=== PATIENT | male | born 1965 | race Caucasian/White ===

== ENCOUNTER 2018-10-10 14:16 | Emergency (ER) | payer MEDICAID, OTHER ==
--- OUTSIDE RECORDS SUMMARY | 2018-10-10 14:57 | XMS REPORT | Continuity of Care Document ---
:1965 External Reference #:[id number] Author Name Kristin Ward Care Team Providers Name Role Phone Arenl De Santiago MD Primary Care Physician Unavailable Payers Type Date Identification Numbers Payment Provider Subscriber Policy Number: [id number] [employer] Román Underwood PayID: [id number] [address] [address] [place] [address] Advance Directives Description No Information Available Problems Description No Information Family History Date Family Member(s) Problem(s) Comments General Hypertension General cancer Father due to bone cancer () Father Hypertension Father bone cancer Mother lung cancer Siblings 1 live and well Social History Type Date Description Comments Sex Unknown Marital Status Single Lives With Alone 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 ETOH Use Currently consumes a couple of drinks alcohol with dinner every night ETOH Use Has consumed alcohol in alcoholic the past Tobacco Use Start: Unknown Light tobacco smoker (10 or fewer cigarettes/day) Smoking Status Reviewed: 09/29/18 Light tobacco smoker (10 or fewer cigarettes/day) Exercise Exercises sporadically Type/Frequency Allergies, Adverse Reactions, Alerts Date Description Reaction Status Severity Comments 07/10/2018 Codeine Active 07/10/2018 Hydrocodone Active 07/12/2018 Metoprolol slurred speach very lathargic Active Medications Medication Date Status Form Strength Qnty SIG Indications Ordering Provider Indapamide Active Tablets 2.5mg take one Unknown 00 tablet by mouth daily(have nt taken ) Lisinopril Active Tablets 20mg 1 by mouth Unknown 00 every day Amlodipine Active Tablets 5mg 1 by mouth Unknown Besylate 00 every day Immunizations Description No Information Available Vital Signs Date Vital Result Comment 09/29/2018 8:35am Weight 181.00 lb without shoes Heart Rate 66 /min BP Systolic Sitting 158 mmHg Lue, reg cuff BP Diastolic Sitting 96 mmHg Lue, reg cuff BP Systolic Standing 148 mmHg Lue, reg cuff BP Diastolic Standing 98 mmHg Lue, reg cuff Respiratory Rate 12 /min Ejection Fraction 50-55% echo 07/20/18 07/12/2018 1:01pm Weight 179.00 lb Heart Rate 62 /min BP Systolic 182 mmHg rue reg cuff BP Diastolic 100 mmHg rue reg cuff BP Systolic Sitting 162 mmHg lue reg cuff BP Diastolic Sitting 102 mmHg lue reg cuff BP Systolic Standing 144 mmHg BP Diastolic Standing 108 mmHg Respiratory Rate 16 /min Results Description No Information Available Procedures Date Code Description Status 07/20/2018 22247 ECHO Transthoracic, Real-Time 2D With Doppler And Color Completed Flow 07/20/2018 63608 ECHO Transthoracic, Real-Time 2D With Doppler And Color Completed Flow 07/12/2018 21682 EKG Tracing & Interpretation Completed Encounters Type Date Location Provider Dx Diagnosis Office Visit 07/12/2018 [facility] Blake Avila I10 Essential ( primary) 1:00p Of Ailyn Guzman M.D. hypertension R00.2 Palpitations Plan of Treatment 09/29/2018 - Blake Guzman M.D.I10 Essential (primary) hypertensionFollow up :As neededRecommendations:Continue to work on the smoking and dietR00.2 Palpitations
--- OUTSIDE RECORDS SUMMARY | 2018-10-10 14:58 | XMS REPORT ---
:1965 External Reference #:[id number] Author Organization [facility] Address [address] [place] [address] Phone [phone] Care Team Providers Name Role Phone Arnel De Santaigo MD Care Team Information Rod Placer Unavailable Arnel De Santiago MD Primary Care Physician Unavailable Payers Type Date Identification Numbers Payment Provider Subscriber Medicaid Effective: Policy Number: [id number] [facility] Román Underwood 2018 PayID: [id number] [address] [address] [place] [address] Medicaid Effective: 2018 Policy Number: [id number] [place] Román Underwood Expires: 2018 PayID: [id number] [address] [facility] [place] [address] Problems Date Description Provider Status Onset: 09/26/2018 Impetigo Arnel De Santiago M.D. Active Onset: 09/26/2018 Mel acharyas Arnel De Santiago M.D. Active Onset: 08/08/2018 Tinea manus Arnel De Santiago M.D. Active Onset: 08/08/2018 Benign prostatic hypertrophy without Arnel De Santiago M.D. Active outflow obstruction Onset: 09/06/2014 Depressive disorder Arnel De Santiago M.D. Active Onset: 09/03/2014 Palpitations Arnel De Santiago M.D. Active Onset: 09/03/2014 Essential hypertension Arnel De Santiago M.D. Active Onset: 09/03/2014 H/O: alcoholism Arnel De aSntiago M.D. Active Family History Date Family Member(s) Problem(s) Comments Father due to Cancer () - bone Father due to Hypertension () Paternal Grandfather due to NC () Social History Type Date Description Comments Occupation [employer] Cigarette Use Current Cigarette Smoker 1 Pack not interested in chantix Daily ETOH Use Currently consumes alcohol rates as heavy in the past, none for a few days Smoking Patient is a current smoker, smokes every day Allergies, Adverse Reactions, Alerts Date Description Reaction Status Severity Comments 07/06/2002 Codeine active 07/06/2002 Hydrocodone active Medications Medication Date Status Form Strength Qnty SIG Indications Ordering Provider Bactrim DS 09/26 Active Tablets 800-160mg 20tab 1 by mouth Arnel F. /2017 s twice a day Gilbert De Santiago Nystatin 08/11 Active Cream [id number] 30gm use as directed Arnel F. t/GM twice a day as davide De Santiago M.D. Amlodipine 08/08 Active Tablets 5mg 90tab 1 by mouth Arnel F. Besylate s every day Gilbert De Santiago Indapamide 06/15 Active Tablets 2.5mg 90tab 1 by mouth I10 Arnel F. /2017 s every day Gilbert De Santiago Lisinopril 06/01 Active Tablets 20mg 90tab 1 by mouth I10 Arnel F. /2017 s every day Gilbert De Santiago Triamcinolone 08/11 Hx Cream 0.5% 60gm apply thin film Arnel F. Acetonide three times a Shallish, - day to affected M.D. 09/26 areas Nystatin/Triam 08/08 Hx Cream [id number]. 30gm apply 1 Arnel F. cinolone 1Unit/GM- application Zoeish, Acetonide - % topically to M.D. 08/11 affected area times per day for rossy infection Amlodipine 07/18 Hx Tablets 2.5mg 60tab 1 by mouth Arnel F. Besylate s every day Ethan De SantiagoDNyla 08/08 No Active 05/12 Hx Unknown Medications /2017 - 05/12 Lisinopril 05/12 Hx Tablets 10mg 30tab 1 by mouth I10 Patti /2017 s every day Lacy Ramirez 06/01 [employer] Chantix 05/12 Hx Tablets 0.5mg X 1tabs 1 starter pack F17.210 Patti Starting 11 & 1 mg for a month Lacy Urbano - X 42 Ramirez, 09/19 Keflex 04/15 Hx Capsules 500mg 20cap 1 by mouth L03.031 Patti s twice a day Lacy Ramirez, 05/12 Lisinopril 04/15 Hx Tablets 20mg 30tab 1 by mouth I10 Patti s every day Lacy Ramirez, 05/12 Amoxicillin/Cl 12/29 Hx Tablets 875-125mg 20tab 1 by mouth R05 Dara avulanate s twice a day Re, Potassium - with food [employer] 04/15 Lisinopril 12/29 Hx Tablets 10mg 30tab 1 by mouth I10 Patti s every day Lacy Ramirez, 04/15 No Active 04/14 Hx Unknown Medications /2014 - 12/29 Lisinopril 11/26 Hx Tablets 10mg 30tab 1 by mouth Arnel FNyla s every day Ethan De Santiago.DNyla 04/14 Escitalopram 09/06 Hx Tablets 20mg 30tab 10/20-10/18 by Arnel FNyla s mouth every day Ethan De Santiago M.DNyla 04/14 Thiamine HCL 09/03 Hx Tablets 100mg 100ta 1 by mouth Arnel FNyla bs every day Ethan De Santiago M.DNyla 04/14 No Active 05/04 Hx Unknown Medications /2012 - 05/04 Medrol Dosepak 05/04 Hx Tablets 4mg 1tabs as directed Arnel FNyla /2012 Ethan De Santiago M.DNyla 05/14 Penla Nail 06/18 Hx Solution 8% apply qhs to 709.9 Singh Lacquer affected nail, Tristian Lofton, - clean nail with M.D. 10/04 alcohol every days suff one month Chantix 02/01 Hx Misc 1unit 1 starter pack Arnel FNyla /2007 s as directed, Jonnathan, - then refill M.D. 10/04 maintenance /2007 packs Floxin 11/14 Hx Tablets 300mg 28tab 1 po bid Arnel F. /2007 Ethan Flood M.D. Pyridium 11/14 Hx Tablets 200mg 15tab 1 PO tid prn Arnel FNyla Ethan Flood M.D. Norvasc 08/15 Hx Tablets 2.5mg 30tab 1 PO qd Arnel FNyla Ethan Flood M.D. 11/14 Metoprolol 08/15 Hx Tablets 100mg 180ta 1 po bid Arnel FNyla Ethan Diamond M.D. 05/04 Penicillin VK 08/15 Hx Tablets 250mg 40tab 1 PO qid Arnel FNyla Ethan Flood M.D. 11/14 Norvasc 08/15 Hx Tablets 2.5mg 90tab 1 PO qd 401.9 Arnel . Ethan Flood M.D. 11/14 Augmentin 01/10 Hx Tablets 875mg 20tab 1 PO bid Arnel FNyla Ethan Flood M.D. 08/15 Chantix 01/10 Hx 1unit 1 Starter Pack Arnel Nyla s For Arnold Jonnathan, - Kathy Shipman M.D. 08/15 Refill Maintenance Packs Metoprolol 01/03 Hx Tablets 50mg 90tab 2 po bid Arnel F. Ethan Flood M.D. 08/15 Toprol XL 06/25 Hx Tablets 50mg 30tab 1 po qd Sarmad JNyla /2004 Ethan Koch M.D. 06/25 Metoprolol 06/25 Hx Tablets 25mg 60tab 1 po bid Sarmad JNyla /2004 Ethan Koch M.D. 01/03 Biaxin 08/31 Hx Tabs 500mg 28tab 1 PO bid Sarmad JNyla /2001 Ethan Koch M.D. 06/11 Duratuss 08/31 Hx 20uni 1 PO bid prn Sarmad Nice /2001 ts Head Ethan Davidson M.D. 06/11 Skelaxin 07/06 Hx 400mg 30uni 2 PO tid Sarmad Nice /2001 Ethan Ghosh M.D. 06/11 Physical 07/06 Hx [id number] Treatment And Sarmad JNyla Therapy [place] Evaluation For Ethan Davidson LT, M.D. 06/11 Cervicalradicul opathy Into Radial Distribution Oxycodone 07/06 Hx 0 0unit Sarmad J. /2001 s Ethan Davidson M.D. 06/11 Prinivil 04/06 Hx 10mg 30uni 1 PO qd Ethan Lunsford M.D. 06/25 Altace 03/08 Hx 5mg 30uni 1 PO qd Donis T. Ethan Miller M.D. 04/06 Cipro 02/13 Hx Tabs 250mg 14tab 1 PO bid Shaw A. Ethan Sanchez M.D. 08/30 Relafen 02/13 Hx 500mg 14uni 1 PO bid Shaw A. Ethan Betancur M.D. 04/06 Keflex 02/11 Hx 5Oomg 20uni 1 PO tid Taiwo JNyla Ethan Wallace M.D. 08/30 Altace 01/26 Hx 5mg 30uni 1 PO qd Shaw A. Ethan Betancur M.D. 02/25 Mentax 01/26 Hx Cream 45gm Apply bid To Shaw A. Ethan Quinn M.D. 02/25 Keflex 01/19 Hx 5Oomg 28uni 1 PO qid Shaw A. Ethan Betancur M.D. 01/26 Suprax 07/21 Hx 400mg 7unit 1 PO qd eDmian Martinez Ethan High M.D. 07/28 Entex LA 09/05 Hx 20uni 1 PO bid Donis T. Ethan Miller M.D. 01/19 Suprax 09/05 Hx 400mg 7unit 1 PO qd Donis T. Ethan Fernandez M.D. 01/19 Uroxatral Hx Tablets 10mg qd Unknown /0000 ER 24HR - 10/04 Metoprolol Hx Tablets 100mg 60tab take one tablet Arnel F. Tartrate /0000 s by mouth two Shallish, - times daily M.D. 04/14 Immunizations CPT Code Status Date Vaccine Lot # [id number] Given 07/18/2018 Influenza Vac, Quadrivalent, Slit Virus, Im [id number] Given 10/17/2004 Tetanus And Diptheria Adult Preservative Free >7Yrs Vital Signs Date Vital Result Comment 09/26/2018 BP Systolic 130 mmHg BP Diastolic 86 mmHg Heart Rate 60 /min Body Temperature 98.1 F Respiratory Rate 16 /min Height 71 inches 5'11" Weight 182.00 lb BMI (Body Mass Index) 25.4 kg/m2 08/08/2018 BP Systolic 148 mmHg BP Diastolic 88 mmHg Heart Rate 64 /min Body Temperature 97.5 F Respiratory Rate 16 /min Height 71 inches 5'11" Weight 176.38 lb BMI (Body Mass Index) 24.6 kg/m2 07/18/2018 BP Systolic 154 mmHg BP Diastolic 88 mmHg Heart Rate 68 /min Body Temperature 97.9 F Respiratory Rate 20 /min Weight 159.00 lb 06/15/2018 BP Systolic 170 mmHg BP Diastolic 100 mmHg Heart Rate 68 /min Body Temperature 98.4 F Respiratory Rate 16 /min Weight 174.00 lb 06/01/2018 BP Systolic 190 mmHg BP Diastolic 100 mmHg Heart Rate 88 /min Body Temperature 98.4 F Respiratory Rate 24 /min Weight 174.00 lb 05/26/2018 BP Systolic 190 mmHg BP Diastolic 110 mmHg BP Systolic Recheck 170 mmHg 10 min later BP Diastolic Recheck 110 mmHg 10 min later Heart Rate 68 /min 05/12/2018 BP Systolic 176 mmHg BP Diastolic 100 mmHg Heart Rate 76 /min Body Temperature 98.8 F Respiratory Rate 16 /min Height 71 inches 5'11" Weight 172.25 lb BMI (Body Mass Index) 24.0 kg/m2 04/15/2018 BP Systolic 158 mmHg BP Diastolic 108 mmHg Heart Rate 78 /min Body Temperature 98.6 F Respiratory Rate 16 /min Height 71 inches 5'11" Weight 175.00 lb BMI (Body Mass Index) 24.4 kg/m2 12/29/2017 BP Systolic 162 mmHg BP Diastolic 108 mmHg Heart Rate 72 /min Body Temperature 98.4 F Respiratory Rate 18 /min Height 71 inches 5'11" Weight 192.00 lb BMI (Body Mass Index) 26.8 kg/m2 04/14/2015 BP Systolic 140 mmHg BP Diastolic 100 mmHg Heart Rate 68 /min Body Temperature 98.1 F Respiratory Rate 16 /min Height 71 inches 5'11" Weight 178.00 lb BMI (Body Mass Index) 24.8 kg/m2 11/26/2014 BP Systolic 140 mmHg BP Diastolic 92 mmHg Heart Rate 60 /min Body Temperature 97.2 F Respiratory Rate 16 /min Height 71 inches 5'11" Weight 170.00 lb BMI (Body Mass Index) 23.7 kg/m2 09/06/2014 BP Systolic 150 mmHg BP Diastolic 100 mmHg Heart Rate 58 /min Body Temperature 98.0 F Height 71 inches 5'11" Weight 169.00 lb BMI (Body Mass Index) 23.6 kg/m2 09/03/2014 BP Systolic 200 mmHg BP Diastolic 100 mmHg Heart Rate 100 /min 05/04/2013 BP Systolic 140 mmHg BP Diastolic 90 mmHg Heart Rate 66 /min Body Temperature 98.0 F Respiratory Rate 16 /min Height 71 inches 5'11" Weight 163.00 lb BMI (Body Mass Index) 22.7 kg/m2 12/24/2008 BP Systolic 124 mmHg BP Diastolic 84 mmHg Heart Rate 60 /min Weight 170.00 lb 10/04/2008 BP Systolic 126 mmHg BP Diastolic 80 mmHg Heart Rate 88 /min Body Temperature 97.5 F Height 71.00 inches 5'11" Weight 168.00 lb BMI (Body Mass Index) 23.4 kg/m2 06/18/2008 BP Systolic 120 mmHg BP Diastolic 72 mmHg Heart Rate 80 /min Height 71.00 inches 5'11" Weight 162.00 lb BMI (Body Mass Index) 22.6 kg/m2 02/02/2008 BP Systolic 124 mmHg BP Diastolic 74 mmHg Heart Rate 64 /min Body Temperature 98.8 F Height 71.00 inches 5'11" Weight 169.00 lb BMI (Body Mass Index) 23.6 kg/m2 12/15/2007 BP Systolic 144 mmHg BP Diastolic 82 mmHg Heart Rate 72 /min Body Temperature 97.6 F Height 71.00 inches 5'11" Weight 171.00 lb BMI (Body Mass Index) 23.8 kg/m2 11/22/2007 BP Systolic 138 mmHg BP Diastolic 84 mmHg Heart Rate 80 /min Body Temperature 98.9 F Height 71.00 inches 5'11" Weight 183.00 lb BMI (Body Mass Index) 25.5 kg/m2 11/14/2007 BP Systolic 140 mmHg BP Diastolic 94 mmHg Heart Rate 72 /min Body Temperature 98.9 F Height 71.00 inches 5'11" Weight 180.00 lb BMI (Body Mass Index) 25.1 kg/m2 08/15/2007 BP Systolic 148 mmHg BP Diastolic 90 mmHg Heart Rate 64 /min Body Temperature 97.7 F Height 71.00 inches 5'11" Weight 203.00 lb BMI (Body Mass Index) 28.3 kg/m2 01/10/2007 BP Systolic 168 mmHg BP Diastolic 110 mmHg Heart Rate 76 /min Height 71.00 inches 5'11" Weight 197.00 lb BMI (Body Mass Index) 27.5 kg/m2 06/25/2005 BP Systolic 168 mmHg BP Diastolic 114 mmHg Heart Rate 88 /min Height 71.00 inches 5'11" Weight 192.00 lb BMI (Body Mass Index) 26.8 kg/m2 09/18/2004 BP Systolic 158 mmHg BP Diastolic 108 mmHg Heart Rate 96 /min Height 71.00 inches 5'11" Weight 200.00 lb BMI (Body Mass Index) 27.9 kg/m2 06/11/2003 BP Systolic 158 mmHg BP Diastolic 110 mmHg Heart Rate 96 /min Height 71.00 inches 5'11" Weight 198.00 lb BMI (Body Mass Index) 27.6 kg/m2 08/31/2002 BP Systolic 148 mmHg BP Diastolic 96 mmHg Heart Rate 76 /min Body Temperature 97.5 F Height 71.00 inches 5'11" Weight 200.00 lb BMI (Body Mass Index) 27.9 kg/m2 07/06/2002 BP Systolic 140 mmHg BP Diastolic 98 mmHg Heart Rate 64 /min Height 71.00 inches 5'11" Weight 198.00 lb BMI (Body Mass Index) 27.6 kg/m2 04/06/2002 BP Systolic 150 mmHg BP Diastolic 98 mmHg Heart Rate 80 /min Height 71.00 inches 5'11" Weight 200.00 lb BMI (Body Mass Index) 27.9 kg/m2 03/23/2001 BP Systolic 134 mmHg BP Diastolic 80 mmHg Heart Rate 72 /min Height 71.00 inches 5'11" Weight 190.00 lb BMI (Body Mass Index) 26.5 kg/m2 02/11/2001 BP Systolic 140 mmHg BP Diastolic 90 mmHg Heart Rate 80 /min Body Temperature 97.7 F Height 71.00 inches 5'11" 01/26/2001 BP Systolic 158 mmHg BP Diastolic 102 mmHg Heart Rate 96 /min Height 71.00 inches 5'11" Weight 192.00 lb BMI (Body Mass Index) 26.8 kg/m2 01/19/2001 BP Systolic 170 mmHg BP Diastolic 114 mmHg Body Temperature 97.5 F Height 71.00 inches 5'11" Weight 192.00 lb BMI (Body Mass Index) 26.8 kg/m2 07/21/2000 BP Systolic 146 mmHg BP Diastolic 90 mmHg Heart Rate 96 /min Body Temperature 97.6 F Height 71.00 inches 5'11" Weight 197.00 lb BMI (Body Mass Index) 27.5 kg/m2 09/05/1997 BP Systolic 150 mmHg BP Diastolic 92 mmHg Body Temperature 97.6 F Height 71.00 inches 5'11" Weight 175.00 lb Results Test Date Test Result H/L Range Note Lipid Profile 08/08/2018 Cholesterol 139 mg/dL 120-200 Triglycerides 54 mg/dL 30-200 HDL Cholesterol 68 mg/dL 30-70 LDL (Calculated) 60 CALC 0-129 VLDL Cholesterol 11 mg/dL 0-50 HDL Risk Factor 2.0 CALC 0.0-4.4 Laboratory test finding 08/08/2018 PSA 0.2 ng/mL 0.0-4.0 Basic Metabolic Panel (8) 06/01/2018 Glucose 81 mg/dL 65-99 1 BUN 15 mg/dL 6-24 1 Creatinine 0.83 mg/dL 0.76-1.27 1 eGFR If NonAfricn Am 100 mL/min/1.73 >59 1 eGFR If Africn Am 115 mL/min/1.73 >59 1 BUN/Creatinine Ratio 18 9-20 1 Sodium 141 mmol/L 134-144 1 Potassium 3.8 mmol/L 3.5-5.2 1 Chloride 106 mmol/L 96-106 1 Carbon Dioxide, Total 21 mmol/L 20-29 1 Calcium 9.0 mg/dL 8.7-10.2 1 Metabolic Panel (14), Comprehensive 05/12/2018 Glucose 90 mg/dL 65-99 2 BUN 13 mg/dL 6-24 2 Creatinine 0.80 mg/dL 0.76-1.27 2 eGFR If NonAfricn Am 101 mL/min/1.73 >59 2 eGFR If Africn Am 117 mL/min/1.73 >59 2 BUN/Creatinine Ratio 16 9-20 2 Sodium 140 mmol/L 134-144 2 Potassium 4.1 mmol/L 3.5-5.2 2 Chloride 100 mmol/L 96-106 2 Carbon Dioxide, Total 23 mmol/L 20-29 2 Calcium 8.9 mg/dL 8.7-10.2 2 Protein, Total 6.9 g/dL 6.0-8.5 2 Albumin 4.6 g/dL 3.5-5.5 2 Globulin, Total 2.3 g/dL 1.5-4.5 2 A/G Ratio 2.0 1.2-2.2 2 Bilirubin, Total 0.5 mg/dL 0.0-1.2 2 Alkaline Phosphatase 86 IU/L 39-117 2 Ast (Sgot) 21 IU/L 0-40 2 Alt (SGPT) 22 IU/L 0-44 2 CBC With Differential/Platelet 05/12/2018 WBC 7.6 x10E3/uL 3.4-10.8 2 RBC 4.56 x10E6/uL 4.14-5.80 2 Hemoglobin 15.2 g/dL 13.0-17.7 2 Hematocrit 44.6 % 37.5-51.0 2 MCV 98 fL High 79-97 2 MCH 33.3 pg High 26.6-33.0 2 MCHC 34.1 g/dL 31.5-35.7 2 RDW 13.7 % 12.3-15.4 2 Platelets 177 x10E3/uL 150-379 2 Neutrophils 72 % Not Estab. 2 Lymphs 17 % Not Estab. 2 Monocytes 10 % Not Estab. 2 Eos 1 % Not Estab. 2 Basos 0 % Not Estab. 2 Immature Cells TNP 2 Neutrophils (Absolute) 5.5 x10E3/uL 1.4-7.0 2 Lymphs (Absolute) 1.3 x10E3/uL 0.7-3.1 2 Monocytes(Absolute) 0.7 x10E3/uL 0.1-0.9 2 Eos (Absolute) 0.1 x10E3/uL 0.0-0.4 2 Baso (Absolute) 0.0 x10E3/uL 0.0-0.2 2 Immature Granulocytes 0 % Not Estab. 2 Immature Grans (Abs) 0.0 x10E3/uL 0.0-0.1 2 NRBC TNP 2 Hematology Comments: TNP 2 Laboratory test finding 05/12/2018 Thyroxine (T4) Free, 1.06 ng/dL 0.82- 1.77 2 Direct, S TSH 0.972 uIU/mL 0.450-4.500 2 CBC Auto Diff 12/12/2014 White Blood Count 6.6 10^3/uL 4.8-10.8 Red Blood Count 4.45 10^6/uL 4.0-5.4 Hemoglobin 15.1 g/dL 14.0-18.0 Hematocrit 44 % 42-52 Mean Corpuscular Volume 99 fL High 80-94 Mean Corpuscular Hemoglobin 34 pg High 27-31 Mean Corpuscular HGB Conc 34 g/dL 31-36 Red Cell Distribution Width 13 % 10.5-15 Platelet Count 198 10^3/uL 150-450 Mean Platelet Volume 8 um3 7.4-10.4 Abs Neutrophils 3.5 10^3/uL 1.5-7.7 Abs Lymphocytes 2.0 10^3/uL 1.0-4.8 Abs Monocytes 0.7 10^3/uL 0-0.8 Abs Eosinophils 0.3 10^3/uL 0-0.6 Abs Basophils 0.1 10^3/uL 0-0.2 Abs Nucleated RBC 0 10^3/uL Granulocyte % 53.4 % 38-83 Lymphocyte % 30.6 % 25-47 Monocyte % 10.6 % High 1-9 Eosinophil % 4.3 % 0-6 Basophil % 1.1 % 0-2 Nucleated Red Blood Cells % 0 Comp Metabolic Panel 12/12/2014 Sodium 136 mmol/L 133-145 Potassium 3.5 mmol/L 3.5-5.0 Chloride 102 mmol/L 101-111 Co2 Carbon Dioxide 25 mmol/L 22-32 Anion Gap 9 mmol/L 2-11 Glucose 97 mg/dL 70-100 Blood Urea Nitrogen 15 mg/dL 6-24 Creatinine 0.83 mg/dL 0.67-1.17 BUN/Creatinine Ratio 18.1 8-20 Calcium 9.1 mg/dL 8.6-10.3 Total Protein 7.0 g/dL 6.4-8.9 Albumin 4.4 g/dL 3.2-5.2 Globulin 2.6 g/dL 2-4 Albumin/Globulin Ratio 1.7 1-3 Total Bilirubin 0.30 mg/dL 0.2-1.0 Alkaline Phosphatase 72 U/L 34-104 Alt 21 U/L 7-52 Ast 25 U/L 13-39 Egfr Non- 97.7 >60 Egfr 125.6 >60 3 Laboratory test finding 12/12/2014 Magnesium 2.0 mg/dL 1.9-2.7 Troponin I 0.01 ng/mL <0.03 4 Alcohol 124 mg/dL High <10 TSH (Thyroid Stimulating Horm) 1.27 IU/mL 0.34-5.60 CBC Auto Diff 11/08/2014 White Blood Count 6.3 10^3/uL 4.8-10.8 Red Blood Count 4.72 10^6/uL 4.0-5.4 Hemoglobin 15.9 g/dL 14.0-18.0 Hematocrit 47 % 42-52 Mean Corpuscular Volume 100 fL High 80-94 Mean Corpuscular Hemoglobin 34 pg High 27-31 Mean Corpuscular HGB Conc 34 g/dL 31-36 Red Cell Distribution Width 13 % 10.5-15 Platelet Count 182 10^3/uL 150-450 Mean Platelet Volume 9 um3 7.4-10.4 Abs Neutrophils 4.8 10^3/uL 1.5-7.7 Abs Lymphocytes 0.8 10^3/uL Low 1.0-4.8 Abs Monocytes 0.6 10^3/uL 0-0.8 Abs Eosinophils 0.1 10^3/uL 0-0.6 Abs Basophils 0 10^3/uL 0-0.2 Abs Nucleated RBC 0 10^3/uL Granulocyte % 75.6 % 38-83 Lymphocyte % 13.1 % Low 25-47 Monocyte % 9.3 % High 1-9 Eosinophil % 1.5 % 0-6 Basophil % 0.5 % 0-2 Nucleated Red Blood Cells % 0 Comp Metabolic Panel 11/08/2014 Sodium 136 mmol/L 133-145 Potassium 4.3 mmol/L 3.5-5.0 Chloride 102 mmol/L 101-111 Co2 Carbon Dioxide 29 mmol/L 22-32 Anion Gap 5 mmol/L 2-11 Glucose 102 mg/dL High 70-100 Blood Urea Nitrogen 15 mg/dL 6-24 Creatinine 0.78 mg/dL 0.67-1.17 BUN/Creatinine Ratio 19.2 8-20 Calcium 9.5 mg/dL 8.6-10.3 Total Protein 7.9 g/dL 6.4-8.9 Albumin 5.0 g/dL 3.2-5.2 Globulin 2.9 g/dL 2-4 Albumin/Globulin Ratio 1.7 1-3 Total Bilirubin 0.60 mg/dL 0.2-1.0 Alkaline Phosphatase 76 U/L 34-104 Alt 22 U/L 7-52 Ast 21 U/L 13-39 Egfr Non- 104.9 >60 Egfr 135.0 >60 5 Laboratory test finding 11/08/2014 C Reactive Protein 1.41 mg/L < 5.00 6 CBC (Fma) 10/04/2008 WBC 8.9 3.6-9.6 RBC 4.58 3.90-5.70 Hemoglobin (Fma/CMC/CTX) 15.2 g/dL 12.1 - 17.2 Hematocrit (Fma/CMC/CTX) 44.5 % 36.1 - 50.3 Mean Corpuscular Vol 97.2 82.2-97.4 Mean Corpuscular Hemaglobin 33.2 27.6-33.3 Mean Corpuscular Hemo Concen 34.2 33.0-36.0 Platelets 167 10^3/ul 150-400 Lymph% 19.8 Low 20.5-51.1 Mixed% 11.1 Neutrophils % 69.1 RDW 12.5 11.6-13.7 Mean Platelet Volume 11.0 High 7.4-10.4 Comprehensive Metabolic Prof 10/04/2008 Albumin 4.2 g/dL 3.8-5.5 Alk. Phos. 65 U/L 22-95 Alt (SGPT) 15 U/L 10-40 Ast (Sgot) 24 U/L 5-34 BUN 18 mg/dL 6-26 Calcium 9.5 mg/dL 8.6-10.2 Chloride 103 mEq/L 94-112 Creatinine 0.9 mg/dL 0.6-1.4 Carbon Dioxide 29 mEq/L 21-32 Glucose 89 mg/dL 70-105 Sodium 140 mEq/L 134-149 Total Bilirubin 0.3 mg/dL 0.2-1.3 Total Protein 6.5 g/dL 6.3-8.1 Potassium 4.4 mEq/L 3.6-5.5 Globulin 2.3 g/dL 2.0-4.8 A/G Ratio 1.8 Calc 0.6-2.2 BUN/Creat Ratio 19.2 Calc 8.0-36.0 Laboratory test finding 10/04/2008 TSH 1.43 mIU/L 0.50-6.00 Laboratory test finding 10/04/2008 Hep B Surface Antigen NEGATIVE Negative 7 Hep C Abs 10/04/2008 Hep C Antibody NEGATIVE Negative 7 CBC With Electronic Diff 01/25/2008 White Blood Count 6.4 CUMM 4.8-10.8 8 Stat Abs Basophils 0 0-0.2 8 Abs Eosinophils 0.1 0-0.6 8 Absolute Neutrophil Count 4.9 1.5-7.7 8 Abs Lymphs 0.9 Low 1.0-4.8 8 Abs Mononuclear 0.5 0-0.8 8 Basophil % 0.3 % 0-2 8 Hematocrit 45 % 42-52 8, 9 Hemoglobin 15.9 g/dL 14.0-18.0 8 Eosinophil % 1.6 % 0-6 8 Gran % 75.4 % 38-83 8 Lymph % 14.7 % Low 20-45 8 Mean Corpuscular HGB Cone 35 g/dL 32-36 8 Mean Corpuscular Hemoglob 35 pg High 27-31 8 Mean Corpuscular Volume 99 um3 High 80-94 8 Mean Platelet Volume 9.3 um3 7.4-10.4 8 Mononuclear % 8.0 % 1-9 8 Platelet Count 148 CUMM Low 150-450 8 Red Cell Count 4.55 CUMM Low 4.6-6.2 8 Redcell Distribution WDTH 14 % 10.5-15 8 Laboratory test 01/25/2008 Alcohol 81.1 mg/dL High None Detected 8, 10 finding Comp Stat 01/25/2008 One Over Creatinine 1.25 8 Anion Gap 8.0 mmol/L 2-11 8, 11 Albumin/Globulin Ratio 1.4 1-3 8 Albumin 4.4 GM/DL 3.6-5.4 8 Alkaline Phosphatase 62 U/L 39-117 8 Alt (SGPT) 57 U/L 17-63 8 Ast (Sgot) 37 U/L 12-42 8 BUN 17 mg/dL 6-24 8 Calcium 8.9 mg/dL 8.7-10.2 8 Chloride 103 mmol/L 101-111 8 Co2 (Carbon Dioxide) 26.0 mmol/L 22-32 8 Globulin 3.1 GM/DL 2-4 8 Glucose 117 mg/dL High 70-105 8 Potassium 3.6 mmol/L 3.5-5.0 8 Sodium 137 mmol/L 135-145 8 Bilirubin Total 0.6 mg/dL 0.4-1.5 8 Total Protein 7.5 GM/DL 6.2-8.1 8 BUN/Creatinine Ratio 21.3 High 8-20 8 Creatinine 0.8 mg/dL 0.5-1.4 8 Laboratory test 01/25/2008 Troponin-I (TnI) 0.03 NG/ML 0-0.06 8, 12 finding Drug Screen Urine 01/25/2008 Amphetamines Urine NONE DETECTED None Detect 8 Screen Benzodiazepine Ur Screen NONE DETECTED None Detect 8 Cocaine Metabolites Urine NONE DETECTED None Detect 8 Opiates Urine Screen NONE DETECTED None Detect 8 PCP Urine Screen NONE DETECTED None Detect 8, 13 Cannabinoid Urine Screen NONE DETECTED None Detect 8 Barbituates Urine Screen NONE DETECTED None Detect 8 Urinalysis W/Microscopic Stat 01/25/2008 Ua Color YELLOW 8 Appearance-Urine CLEAR 8 Bilirubin-Ur NEGATIVE Negative 8 Blood-Urine NEGATIVE Negative 8 Epith Cells-Ur RARE 8 Esterase-Urine TRACE Negative 8 Glucose-Urine NEGATIVE Negative 8 Ketones-Urine NEGATIVE Negative 8 Nitrite NEGATIVE Negative 8 PH-Urine 5.0 5-9 8 Protein-Urine NEGATIVE Negative 8 RBC-Urine NONE SEEN 0-2 8 [id number]-[id number] NEGATIVE Negative 8 Specific [place]-Ur 1.019 1.010-1.030 8 WBC-Urine 0-2 0-5 8 Ua - Micro (Fma) 12/15/2007 Appearance clear Color yellow Glucose, Urine (Fma/CMC/CTX) - Bilirubin - Ketones 2+ SP Grav >1.030 Blood - PH 5.5 Protein - Urobil - Nitrite - Leukocytes (Fma/CMC/Centrex) - Hyaline no specimen /Lpf Granular saved for micro /Lpf Comprehensive Metabolic Prof 12/15/2007 Albumin 4.4 g/dL 3.8-5.5 Alk. Phos. 79 U/L 22-95 Alt (SGPT) 224 U/L High 10-40 Ast (Sgot) 162 U/L High 5-34 BUN 13 mg/dL 6-26 Calcium 9.2 mg/dL 8.6-10.2 Chloride 101 mEq/L 94-112 Creatinine 0.9 mg/dL 0.6-1.4 Carbon Dioxide 30 mEq/L 21-32 Glucose 77 mg/dL 70-105 Sodium 143 mEq/L 134-149 Total Bilirubin 0.5 mg/dL 0.2-1.3 Total Protein 7.1 g/dL 6.3-8.1 Potassium 3.6 mEq/L 3.6-5.5 Globulin 2.8 g/dL 2.0-4.8 A/G Ratio 1.6 Calc 0.6-2.2 BUN/Creat Ratio 14.5 Calc 8.0-36.0 Lipid Profile 12/15/2007 Cholesterol 143 mg/dL 120-200 HDL 87 mg/dL High 30-70 14 Triglycerides 74 mg/dL 30-200 HDL Risk Factor 1.6 CALC Low 4.2-7.0 LDL (Calculated) 41 CALC 0-129 VLDL (Calculated) 15 mg/dL 0-50 Complete Blood Count 12/15/2007 WBC 6.6 x10^3/u 3.6-9.6 Gran# 5.2 x10^3/u 1.5-7.2 Gran% 78.5 % High 42.2-75.2 HCT 51 % High 36-50 HGB 17.5 g/dL High 12.1-17.2 Lymph# 1.1 x10^3/u 0.7-4.9 Lymph% 16.3 % Low 20.5-51.1 MCH 35.6 pg High 27.6-33.3 MCV 102.5 fL High 82.2-97.4 MCHC 34.7 g/dL 33.0-35.5 Mo# 0.3 x10^3/u 0.1-0.9 Mo% 5.2 % 1.7-9.3 MPV 8.8 fL 7.4-10.4 PLT 134 x10^3/u Low 150-400 RBC 4.93 x10^6/u 3.90-5.70 RDW 13.3 % 11.6-13.7 Laboratory test finding 12/15/2007 PSA 0.20 ng/mL 0.00-4.00 CBC With Electronic Diff Stat 11/16/2007 White Blood Count 9.2 CUMM 4.8- 10.8 Abs Basophils 0.1 0-0.2 Abs Eosinophils 0.2 0-0.6 Absolute Neutrophil Count 5.7 1.5-7.7 Abs Lymphs 2.3 1.0-4.8 Abs Mononuclear 0.9 High 0-0.8 Basophil % 1.3 % 0-2 Hematocrit 51 % 42-52 Hemoglobin 18.1 g/dL High 14.0-18.0 Eosinophil % 2.3 % 0-6 Gran % 61.7 % 38-83 Lymph % 24.9 % 20-45 Mean Corpuscular HGB Cone 36 g/dL 32-36 Mean Corpuscular Hemoglob 34 pg High 27-31 Mean Corpuscular Volume 96 um3 High 80-94 Mean Platelet Volume 8.2 um3 7.4-10.4 Mononuclear % 9.8 % High 1-9 Platelet Count 189 CUMM 150-450 Red Cell Count 5.31 CUMM 4.6-6.2 Redcell Distribution WDTH 12 % 10.5-15 Alcohol Stat 11/16/2007 Alcohol 324.0 mg/dL High None Detected 15 Basic Metabolic 11/16/2007 One Over Creatinine 1.25 Panel Stat Anion Gap 13.0 mmol/L High 2-11 16 BUN 8 mg/dL 6-24 Calcium 8.9 mg/dL 8.7-10.2 Chloride 102 mmol/L 101-111 Co2 (Carbon Dioxide) 26.0 mmol/L 22-32 Glucose 96 mg/dL 70-105 Potassium 3.8 mmol/L 3.5-5.0 Sodium 141 mmol/L 135-145 BUN/Creatinine Ratio 10.0 8-20 Creatinine 0.8 mg/dL 0.5-1.4 Ua - Micro ([facility]) 11/14/2007 Appearance CLEAR Color LT YELLOW Glucose NEG Bilirubin NEG Ketones 1+ SP Grav 1.015 Blood NEG PH 7.0 Protein SSA NEG Urobil 1.0 Nitrite NEG Leukocytes (a[place]) TRACE Hyaline - /Lpf Granular - /Lpf WBC ([facility]) 10-15 RBC - Mucus - /Lpf Epith - /Lpf Bacteria PRESENT /Hpf Amorphous - /Lpf Crystals, Fluid (a/[facility]) - Z#Comments - Laboratory test finding 11/14/2007 Urine Culture ([facility] NEGATIVE GC/Chlamydia Probe, Urine 11/14/2007 Chlamydia Amplified Probe NEGATIVE GC Amplified Probe NEGATIVE CBC With Manual Diff ([facility] 12/25/2001 WBC 8.2 4.8-10.8 RBC 5.15 4.6-6.2 Hemoglobin 16.7 g/dL 14.0-18.0 Hematocrit 48 % 42-52 Mean Corpuscular Vol 93 80-94 Mean Corpuscular Hemaglobin 32 High 27-31 Mean Corpuscular Hemo Concen 35 32-36 RDW 12 10.5-15 Platelets 192 CUMM 150-450 Mean Platelet Volume 8.4 7.4-10.4 Poly From [facility] 72 38-83 Band - 0-8 Lymph From [facility] 21 5-47 [place] From [facility] 3 0-13 Eos From [facility] 2 0-6 Atypical Lymph 2 0-6 Morphology NORMAL Basophils - Basic Metabolic ([facility]) 12/25/2001 Sodium 141 mmol/L 135-145 Potassium 3.7 3.5-5.0 Chloride 103 mmol/L 95-108 Co2 25.8 21-33 Glucose 139 mg/dL High 70-105 BUN 20 6-22 Creatinine 1.0 mg/dL 0.5-1.4 BUN/Creatinin Ratio 20.0 8-20 Calcium 9.4 mg/dL 8.7-10.2 Lipid Profile ([facility]) 01/26/2001 Cholesterol 140 mg/dL 140-200 Triglyceride 55 mg/dL 30-150 VLDL 11 0-50 LDL-Calculated 76 0-160 HDL-Chol 53 35-85 Comp Plus Liver ([facility]) 01/26/2001 Albumin 4.6 3.8-5.5 Alkaline Phosphatase 86 U/L 42-98 Bilirubin, Direct 0.4 mg/dL 0-0.6 Bilirubin, Total 0.7 mg/dL 0.2-1.3 BUN 18 7-26 Calcium 8.0 mg/dL 7.4-9.2 Creatinine 0.8 mg/dL 0.6-1.4 Glucose 103 mg/dL 70 - 118 Ast Sgot 20 U/L 9-44 Alt SGPT 46 U/L High 0-28 Total Protein 7.0 g/dL 6.4-8.3 Sodium 143 134-149 Potassium 4.7 3.6-5.5 Chloride 105 mEq/L 94-112 Co2 26 21-32 Globulin 2.4 2.0-4.8 A/G Ratio 1.9 0.6-2.2 Bilirubin, Indirect 0.30 ml/dl 0.10-1.0 BUN/Creatinin Ratio 22.5 8.0-36 CBC With Diff ([facility]) 01/26/2001 WBC 8.2 3.6-9.6 Lymphocytes 15.9 % Low 20.5 - 51.1 Monocytes 2.4 % 1.7 - 9.3 Granulocytes 81.7 % High 42.2 - 75.2 Lymphocytes 1.3 10^3/uL 0.7 - 4.9 Monocytes 0.2 10^3/uL 0.1 - 0.9 Granulocytes 6.7 10^3/uL 1.5 - 7.2 RBC 5.03 3.90-5.70 Hemoglobin 16.7 g/dL 12.1 - 17.2 Hematocrit 48.3 % 36.1 - 50.3 Mean Corpuscular Vol 96.2 82.2-97.4 Mean Corpuscular Hemaglobin 33.1 27.6-33.3 Mean Corpuscular Hemo Concen 34.5 33.0-34.8 RDW 12.0 11.6-13.7 Platelets 188 10^3/ul 150-400 Mean Platelet Volume 9.8 7.4-10.4 Ua - Non Micro (a New) 01/26/2001 Appearance CLEAR YELLOW Glucose - Bilirubin - Ketones - SP Grav >=1.030 Blood - PH 5.0 Protein - Urobil 0.2 Nitrite - Leukocytes - 1 1 sst 2 2 SSTS 3 Because ethnic data is not always readily available, this report includes an eGFR for both -Americans and non- Americans. The National Kidney Disease Education Program (NKDEP) does not endorse the use of the MDRD equation for patients that are not between the ages of 18 and 70, are , have extremes of body size, muscle mass, or nutritional status, or are non- or non-. According to the National Kidney Foundation, irrespective of diagnosis, the stage of the disease is based on the level of kidney function: Stage Description GFR(mL/min/1.73 m(2)) 1 Kidney damage with normal or decreased GFR 90 2 Kidney damage with mild decrease in GFR 60-89 3 Moderate decrease in GFR 30-59 4 Severe decrease in GFR 15-29 5 Kidney failure <15 (or dialysis) 4 Reference Range and Interpretation: TnI (ng/mL) Interpretation Less Than 0.03 ng/mL Not supportive of diagnosis of NC 0.03 - 0.50 ng/mL Indeterminate: suggest serial studies if clinically indicated. Greater than 0.5 ng/mL Consistent with diagnosis of NC 5 Because ethnic data is not always readily available, this report includes an eGFR for both -Americans and non- Americans. The National Kidney Disease Education Program (NKDEP) does not endorse the use of the MDRD equation for patients that are not between the ages of 18 and 70, are , have extremes of body size, muscle mass, or nutritional status, or are non- or non-. According to the National Kidney Foundation, irrespective of diagnosis, the stage of the disease is based on the level of kidney function: Stage Description GFR(mL/min/1.73 m(2)) 1 Kidney damage with normal or decreased GFR 90 2 Kidney damage with mild decrease in GFR 60-89 3 Moderate decrease in GFR 30-59 4 Severe decrease in GFR 15-29 5 Kidney failure <15 (or dialysis) 6 Acute inflammation: >10.00 7 1 SST 8 COMMENTS? THANK-YOU 9 Lymphopenia % 10 The detection limit for ETHANOL is 10.0 mg/dl . Values less than 10.0 mg/dl cannot be accurately measured. . 11 Anion gap measurement may be of limited value in the presence of any alkalosis, especially in a combined acid base disorder. . 12 New Reference Range and Interpretation effective 07/20/02 TnI (ng/ml) INTERPRETATION <0.06 ng/ml NOT SUPPORTIVE OF DIAGNOSIS OF NC 0.06 - 0.50 ng/ml INDETERMINATE: SUGGEST SERIAL STUDIES IF CLINICALLY INDICATED. > 0.5 ng/ml CONSISTENT WITH DIAGNOSIS OF NC . 13 THE URINE SPECIMEN WAS TESTED AT THE LISTED CUTOFFS: DRUG CLASS TEST LEVEL (NG/ML) AMPHETAMINES 300 BARBITUATES 200 BENZODIAZEPINE METABOLITES 200 COCAINE METABOLITES 300 CANNABINOIDS 25 OPIATES 200 PCP 25 THIS IS A SCREENING PROCEDURE. POSITIVE RESULTS ARE NOT CONFIRMED. SPECIMEN WAS RECEIVED WITHOUT CHAIN OF CUSTODY. RESULTS SHOULD BE USED FOR MEDICAL PURPOSES ONLY. . 14 RESULT ALVINO'D 15 VERBAL TO [facility] BY GLORY at 0354 on 11/16/07. Results read back accurately. The detection limit for ETHANOL is 10.0 mg/dl . Values less than 10.0 mg/dl cannot be accurately measured. . 16 Anion gap measurement may be of limited value in the presence of any alkalosis, especially in a combined acid base disorder. . Procedures Date CPT Code Description Status 04/14/2015 68981 Electrocardiogram Complete Completed 09/03/2014 72275 Electrocardiogram Complete Completed Encounters Type Date Location Provider CPT E/M Dx Office Visit 08/08/2018 2:20p Main Office Arnel De Santiago M.D. 82717 I10 N40.0 B35.2 R00.2 Office Visit 07/18/2018 3:20p Main Office Arnel De Santiago M.D. 68159 Z23 I10 Office Visit 06/15/2018 5:45p [place] [address] I10 F17.210 F10.21 R00.2 Office Visit 06/01/2018 1:15p [place] [address] I10 F17.210 Z71.6 F10.21 Office Visit 05/26/2018 9:15a Main Office Arnel De Santiago M.D. 61902 I10 Office Visit 05/12/2018 1:00p [place] [address] I10 M79.674 F17.210 Z71.6 Office Visit 04/15/2018 10:30a Main Office Patti Ramirez, [employer] 89207 L03.031 I10 Office Visit 12/29/2017 3:15p [facility] Dara Grimaldo, BIOMETRIC TECHNICIAN 96400 I10 R05 Office Visit 04/14/2015 2:40p Main Office Arnel De Santiago M.D. 14193 401.9 785.1 V11.3 Office Visit 11/26/2014 1:40p Main Office Arnel De Santiago M.D. 59772 401.9 311 Office Visit 09/06/2014 4:20p [facility] Arnel De Santiago M.D. 56823 401.9 V11.3 785.1 311 Office Visit 09/03/2014 6:50p Main Office Arnel De Santiago M.D. 97559 V11.3 401.9 785.1 Office Visit 05/04/2013 10:20a [facility] Arnel De Santiago M.D. 69208 728.87 Office Visit 12/24/2008 2:00p Main Office Arnel De Santiago M.D. 73025 786.50 Office Visit 10/04/2008 1:20p Main Office Arnel De Santiago M.D. 57882 709.9 401.9 794.8 719.41 Office Visit 06/18/2008 1:40p Main Office Francisco Lofton M.D. 82382 709.9 Office Visit 02/02/2008 3:30p Main Office Arnel De Santiago M.D. 15054 401.9 311 601.9 V11.3 305.1 Office Visit 12/15/2007 11:00a Main Office Arnel De Santiago M.D. 57945 401.9 311 601.9 V11.3 Office Visit 11/22/2007 2:10p Main Office Taiwo Valencia M.D. 96435 601.9 Office Visit 11/14/2007 1:30p Main Office Arnel De Santiago M.D. 47168 788.1 401.9 311 V65.42 Office Visit 08/15/2007 5:50p Main Office Arnel De Santiago M.D. 94988 401.9 305.1 V76.41 Office Visit 01/10/2007 5:00p Main Office Arnel De Santiago M.D. 36991 401.9 466.0 305.1 461.1 Office Visit 06/25/2005 11:00a Main Office Sarmad Davidson M.D. 59714 401.9 Office Visit 09/18/2004 9:30a Main Office Kisha Herrera-C 51275 782.2 Office Visit 06/11/2003 4:10p Main Office Sarmad Davidson M.D. 79121 784.2 727.43 Office Visit 08/31/2002 3:00p Main Office Sarmad Davidson M.D. 66601 461.0 Office Visit 07/06/2002 9:10a [facility] Sarmad Davidson M.D. 12297 Office Visit 04/06/2002 10:20a Main Office Keegan Reilly M.D. 61374 Office Visit 03/23/2001 1:00p Main Office Shaw Hilario M.D. 84060 Office Visit 02/11/2001 11:30a Main Office Taiwo Valencia M.D. 88396 Office Visit 01/26/2001 3:20p Main Office Shaw Hilario M.D. 31448 Office Visit 01/19/2001 4:10p Main Office Shaw Hilario M.D. 62966 Office Visit 07/21/2000 11:40a Main Office Demian Melo M.D. 48073 Plan of Care Future Appointment(s):10/31/2018 3:00 pm - Arnel De Santiago M.D. at [facility]8009/26/2018 - Arnel De Santiago M.D.I10 Essential (primary) hypertensionComments:continue current medication, call if bp elevation is persistent above 140/90F10.21 Alcohol dependence, in remissionComments:says etoh not a problem nowB35.6 Tinea crurisComments:just nystatin on rash in lmvmoS08.09 Other impetigoComments:bactrim , to call if no improvement, consider Derm consultAllNew Medication:Bactrim DS 800-160 mgComments:check on appointment with Dr Guzman , had been referred for colonoscopyFollow up:2 months
[2018-10-10 15:00] LABS: ABS Basophils 0 10^3/ul (0-0.2); ABS Eosinophils 0.2 10^3/ul (0-0.6); ABS Lymphocytes 0.9 10^3/ul (1.0-4.8); ABS Monocytes 0.5 10^3/ul (0-0.8); ABS Neutrophils 4.3 10^3/ul (1.5-7.7); ABS Nucleated RBC 0 10^3/ul; Eosinophil % 3.5 %; Hematocrit 46 % (42-52); Hemoglobin 15.3 g/dl (14.0-18.0); Lymphocyte % 15.3 %; Mean Corpuscular HGB Conc 34 g/dl (31-36); Mean Corpuscular Hemoglobin 32 pg (27-31); Mean Corpuscular Volume 96 fL (80-94); Mean Platelet Volume 8.6 fL (7.4-10.4); Nucleated Red Blood Cells % 0.1; Platelet Count 206 10^3/ul (150-450); Red Blood Count 4.72 10^6/ul (4.00-5.40); Red Cell Distribution Width 13 % (10.5-15); White Blood Count 5.9 10^3/ul (3.5-10.8)
--- NOTE | 2018-10-10 15:06 | ED ---
Complex/Multi-Sys Presentation - HPI Summary HPI Summary: A 53 y/o male presents to the ED c/o nausea, SOB, and a wide array of symptoms after taking medication. In the ED room, the patient has a pulse of 71 BPM, O2 saturation of 100%, and blood pressure of 176/109. As per triage, "taking bactrim for 1.5wks for staph infection. yesterday started experiencing nausea, pulsating in head, "force in chest", difficulty breathing. history of MRSA". According to the patient, he has been taking Bactrim for a little while, however , yesterday around noon and somewhat the past two days, he has been experiencing nausea. He stated that he does take his antibiotics with his high blood pressure medications (rotations). When he took his first dose, he felt stomach problems, which is similar to symptoms he experienced before, but this time it is more of a "gas". Additionally, he has been frequently urinating. He has been urinating more fluid than he is consuming. Furthermore, today when he woke up he felt terrible and was dizzy (like he is drunk). He also has pressure in his face (not flushing), and "thrushing" in his chest. He emphasized that there was nothing aggravating in the best, nothing painful, and no palpitations , but his "heart pumping harder". He denies any abdominal pain, pain with urination, but does have a mild headache as he describes as throbbing and heaviness. He has no vision changes, or edema, weakness, dizziness, but does have SOB. He was given the medication because he was recently diagnosed with a staph infection on his left hand and groin, but it is getting better. No prior surgeries in abdomen. - History Of Current Complaint Chief Complaint: EDAllergicReaction Time Seen by Provider: 10/10/18 14:31 Hx Obtained From: Patient Onset/Duration: Sudden Onset, Lasting Days, Still Present Timing: Constant Severity Currently: None Location: Negative Character: Throbbing Aggravating Factor(s): NOTHING Alleviating Factor(s): NOTHING Associated Signs And Symptoms: Positive: Headache, SOB, Nausea. Negative: Dizziness, Weakness, Chest Pain, Palpitations, Edema, Abdominal Pain, Fever - Allergies/Home Medications Allergies/Adverse Reactions: Allergies Allergy/AdvReac Type Severity Reaction Status Date / Time codeine Allergy Hives Verified 10/10/18 14:23 hydrocodone Allergy Hives Verified 10/10/18 14:23 PMH/Surg Hx/FS Hx/Imm Hx Endocrine/Hematology History: Denies: Hx Diabetes, Hx Thyroid Disease Cardiovascular History: Reports: Hx Hypertension Respiratory History: Denies: Hx Asthma, Hx Chronic Obstructive Pulmonary Disease (COPD) GI History: Denies: Hx Ulcer - Surgical History Surgery Procedure, Year, and Place: TEMPORAL MASTOIDECTOMY - Immunization History Date of Tetanus Vaccine: PT STATES UNSURE Date of Influenza Vaccine: NONE Infectious Disease History: No Infectious Disease History: Denies: Hx Hepatitis, Hx Human Immunodeficiency Virus (HIV), Traveled Outside the [place] in Last 30 Days - Family History Known Family History: Negative: Diabetes - Social History Alcohol Use: Daily Alcohol Amount: daily drinker, on ABX hasnt had drink since 10/05/18 Substance Use Type: Reports: None Smoking Status (MU): Heavy Every Day Tobacco Smoker Amount Used/How Often: 5-7 PER DAY Review of Systems Positive: Other - NEGATIVE: FLUSHING. Negative: Fever Negative: Blurred Vision Positive: Other - POSITIVE: "HEART BEATING HARDER" Positive: Shortness Of Breath Positive: Nausea, Other - POSITIVE: "GAS" FEELING IN ABDOMEN. Negative: Abdominal Pain Positive: frequency - INCREASED. Negative: pain Negative: Edema Neurological: Other - NEGATIVE: DIZZINESS Positive: Headache. Negative: Weakness All Other Systems Reviewed And Are Negative: Yes Physical Exam - Summary Physical Exam Summary: Appearance: Well-appearing, Well-nourished, lying in bed comfortably Skin: Warm, dry, no obvious rash Eyes: sclera anicteric, no conjunctival pallor ENT: mucous membranes moist, pharynx appears normal Neck: Supple, nontender Respiratory: Clear to auscultation, no signs of respiratory distress Cardiovascular: Normal S1, S2. No murmurs. Normal distal pulses in tibial and radial bilaterally. Abdomen: Soft, nontender, normal active bowel sounds present Musculoskeletal: Normal, Strength/ROM Intact Neurological: A&Ox3, awake and alert, mentation is normal, speech is fluent and appropriate Psychiatric: affect is normal, does not appear anxious or depressed Triage Information Reviewed: Yes Vital Signs On Initial Exam: Initial Vitals Temp Pulse Resp BP Pulse Ox 97.8 F 86 16 173/106 100 10/10/18 14:18 10/10/18 14:18 10/10/18 14:18 10/10/18 14:18 10/10/18 14:18 Vital Signs Reviewed: Yes Diagnostics - Vital Signs Vital Signs Temp Pulse Resp BP Pulse Ox 10/10/18 14:32 72 100 10/10/18 14:31 73 176/109 100 10/10/18 14:18 97.8 F 86 16 173/106 100 - Laboratory Result Diagrams: 10/10/18 14:52 10/10/18 14:52 Lab Statement: Any lab studies that have been ordered have been reviewed, and results considered in the medical decision making process. - EKG 1458 Cardiac Rate: NL - 62 BPM EKG Rhythm: Sinus Rhythm - 62 BPM Summary of EKG Findings: NSR at 62 BPM, P waves, QRS complex, and T waves are within normal limits, T waves and intervals are normal, no ischemic changes. This is a normal EKG Complex Multi-Symp Course/Dx Course Of Treatment: A 53 y/o male presents to the ED c/o nausea, SOB, and a wide array of symptoms after taking medication. In the ED room, the patient has a pulse of 71 BPM, O2 saturation of 100%, and blood pressure of 176/109. According to the patient, he has been taking Bactrim for a little while, however , yesterday around noon and somewhat the past two days, he has been experiencing nausea. Additionally, he has been frequently urinating. He has been urinating more fluid than he is consuming. Furthermore, today when he woke up he felt terrible and was dizzy (like he is drunk). He also has pressure in his face (not flushing), and "thrushing" in his chest. He emphasized that there was nothing aggravating in the best, nothing painful, and no palpitations, but his "heart pumping harder". He denies any abdominal pain, pain with urination, but does have a mild headache as he describes as throbbing and heaviness. He has no vision changes, or edema, weakness, dizziness, but does have SOB. Physical examination was unremarkable. An EKG revealed NSR at 62 BPM, P waves, QRS complex, and T waves are within normal limits, T waves and intervals are normal, no ischemic changes. This is a normal EKG. Hematology, Chemistry, and urinalysis screens were done. No significant laboratory abnormalities were found. In the ED course, the patient received no medications. Patient will be discharged with a diagnosis of polyuria. Patient is to follow up with primary care provider in one week. Patient is to return to ED for any new or worsening symptoms. Patient is agreeable with this plan. - Diagnoses Provider Diagnoses: Polyuria Discharge - Sign-Out/Discharge Documenting (check all that apply): Patient Departure - DISCHARGE - Discharge Plan Condition: Good Disposition: HOME Patient Education Materials: Polyuria (ED) Referrals: James SY,YOSSI Armstrong [Primary Care Provider] - 1 Week Additional Instructions: Your blood work and EKG did not show any sign of a serious problem with the heart or with your metabolism. Your symptoms are not typical for an allergy to bactrim but I think it would be reasonable to hold that medication for the time being, until you can discuss this further with your own physician. Sometimes an illness takes time to develop before a diagnosis can be made, so be alert for any changes to your symptoms, or especially new symptoms. RETURN TO THE ED FOR ANY NEW OR WORSENING SYMPTOMS. - Billing Disposition and Condition Condition: GOOD Disposition: Home - Attestation Statements Document Initiated by Ramos: Yes Documenting Crissyibe: Jonathon Patel Provider For Whom Ramos is Documenting (Include Credential): Keegan Wilhelm MD [employer] Attestation: Jonathon Wilburn, scribed for Keegan Wilhelm MD on 10/13/18 at 0204. Scribe Documentation Reviewed: Yes Provider Attestation: The documentation as recorded by the Jonathon aaron accurately reflects the service I personally performed and the decisions made by Keegan beth MD Status of Scribe Document: Viewed
[2018-10-10 15:17] LABS: ALT 22 U/L (7-52); AST 17 U/L (13-39); Albumin 4.3 g/dL (3.2-5.2); Albumin/Globulin Ratio 1.7 (1-3); Alkaline Phosphatase 73 U/L (34-104); Anion Gap 4 mmol/L (2-11); BUN/Creatinine Ratio 14.4 (8-20); Blood Urea Nitrogen 13 mg/dL (6-24); CO2 Carbon Dioxide 24 mmol/L (22-32); Calcium 9.2 mg/dL (8.6-10.3); Chloride 107 mmol/L (101-111); EGFR Non-African American 87.6 (>60); Globulin 2.6 g/dL (2-4); Glucose 110 mg/dL (70-100); Potassium 3.9 mmol/L (3.5-5.0); Sodium 135 mmol/L (135-145); Total Protein 6.9 g/dL (6.4-8.9)
[2018-10-10 15:22] LABS: Alcohol < 10 mg/dL (<10)
[2018-10-10 15:37] LABS: TSH (Thyroid Stimulating Horm) 1.66 mcIU/mL (0.34-5.60)
[2018-10-10 16:30] LABS: Urine Appearance Clear; Urine Bilirubin Negative (Negative); Urine Blood Negative (Negative); Urine Color Yellow; Urine Glucose Negative (Negative); Urine Ketones Negative (Negative); Urine Nitrite Negative (Negative); Urine Protein Negative (Negative); Urine Specific Gravity 1.015 (1.010-1.030); Urine Urobilinogen Negative (Negative)
[2018-10-10 18:37] VITALS: BP 159/105
== END 2018-10-10 18:36 | disposition home or self-care (01) ==
LOC: ED 14:16
DX: R35.8 Other polyuria (principal); R51 Headache; R06.02 Shortness of breath; R11.0 Nausea; F17.210 Nicotine dependence, cigarettes, uncomplicated
CPT/HCPCS: 36415; 80053; 80320; 81003; 84443; 84484; 85025; 93005; 99282; G0480

== ENCOUNTER 2019-04-11 10:45 | Emergency (ER) | payer OTHER ==
--- OUTSIDE RECORDS SUMMARY | 2019-04-11 10:51 | XMS REPORT | Continuity of Care Document ---
:1965 External Reference #:[id number] Author Name Arnel De Santiago M.D. 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 Onset: 09/03/2014 Essential hypertension Arnel De Santiago M.D. Onset: 09/03/2014 Depressive disorder Arnel De Santiago M.D. Onset: 09/06/2014 Benign prostatic hypertrophy without outflow Arnel De Santiago M.D. Onset: obstruction Tinea manus Arnel De Santiago M.D. Onset: 08/08/2018 Inactive Problems Palpitations Arnel De Santiago M.D. Onset: 09/03/2014 Inactive: 04/06/2019 Tinea cruris Arnel De Santiago M.D. Onset: 09/26/2018 Inactive: 04/06/2019 Impetigo Arnel De Santiago M.D. Onset: 09/26/2018 Inactive: 04/06/2019 Erythematous condition Arnel De Santiago M.D. Onset: 10/31/2018 Inactive: 04/06/2019 Otitis externa Arnel De Santiago M.D. Onset: 01/02/2019 Inactive: 04/06/2019 Family History Date Family Member(s) Observation Comments Father due to Cancer () - bone Father due to Hypertension () Paternal Grandfather due to [place] () Social History Type Date Description Comments Sex Unknown Occupation [employer] Tobacco Use Start: Unknown Current Cigarette Smoker 1 not interested in chantix Pack Daily ETOH Use Currently consumes alcohol rates as heavy in the past, none for a few days Tobacco Use Start: Unknown Patient is a current smoker, smokes every day Smoking Status Reviewed: 05/12/18 Patient is a current smoker, smokes every day Allergies, Adverse Reactions, Alerts Active Allergies Reaction Severity Comments Date Codeine 07/06/2002 Hydrocodone 07/06/2002 Medications Active Medications SIG Qnty Indications Ordering Provider Date Nystatin use as directed 30gm Arnel De Santiago, 08/11/2018 [id number]/GM twice a day as M.D. Cream needed Amlodipine Besylate 1 by mouth every 90tabs Arnel De Santiago, 08/08/2018 5mg day M.D. Tablets Lisinopril 1 by mouth every 90tabs I10 Arnel De Santiago, 06/01/2018 20mg Tablets day M.D. History Medications Terbinafine HCL Take 1 tablet by mouth 14tabs Arnel FNyla 01/02/2019 - daily for fungal skin Gilbert De Santiago 04/06/2019 250mg Tablets disease Azithromycin take 2 tablets by mouth on 6tabs Arnel Hassan 10/31/2018 - day 1 then 1 tablet on Gilbert De Santiago 11/06/2018 250mg Tablets days 2 through 5 Terbinafine HCL Take 1 tablet by mouth 14tabs Arnel FNyla 10/12/2018 - daily for fungal skin Gilbert De Santiago 10/31/2018 250mg Tablets disease Amoxicillin/Clavul 1 twice a day w/ food. 20tabs Arnel FNyla 10/12/2018 - anate Potassium Gilbert De Santiago 10/30/2018 875-125mg Tablets Bactrim DS 1 by mouth twice a day 20tabs Arnel FNyla 09/26/2018 - Gilbert De Santiago 10/12/2018 800-160mg Tablets Triamcinolone apply thin film three 60gm Arnel Mo 08/11/2018 - Acetonide times a day to affected Gilbert De Santiago 09/26/2018 0.5% areas Cream Nystatin/Triamcino apply 1 application 30gm Arnel FNyla 08/08/2018 - lone Acetonide topically to affected area Gilbert De Santiago 08/11/2018 2 times per day for 192769-3.1Unit/GM- rossy infection % Cream Amlodipine 1 by mouth every day 60tabs Arnel Hassan 07/18/2018 - Besylate Gilbert De Santiago 08/08/2018 2.5mg Tablets Indapamide 1 by mouth every day 90tabs I10 Arnel Hassan 06/15/2018 - 2.5mg Gilbert De Santiago 10/31/2018 Tablets Chantix Starting 1 starter pack for a month 1tabs F17.2 [facility] 2017 - Month Urbano 10 YOSSI Ramirez 09/19/2018 0.5mg X 11 & 1 mg X 42 Tablets Lisinopril 1 by mouth every day 30tabs I10 [facility] 05/12/2018 - 10mg Ramirez, INTERNATIONAL NURSE 06/01/2018 Tablets No Active Unknown 05/12/2018 - Medications 05/12/2018 Keflex 1 by mouth twice a day 20caps L03.0 [facility] 04/15/2018 - 500mg 31 Ramirez, INTERNATIONAL NURSE 05/12/2018 Capsules Lisinopril 1 by mouth every day 30tabs I10 [facility] 04/15/2018 - 20mg Ramirez, INTERNATIONAL NURSE 05/12/2018 Tablets Amoxicillin/Clavul 1 by mouth twice a day 20tabs R05 Dara Grimaldo, 2017 - anate Potassium with food [employer] 04/15/2018 875-125mg Tablets Lisinopril 1 by mouth every day 30tabs I10 [facility] 12/29/2017 - 10mg Ramirez, INTERNATIONAL NURSE 04/15/2018 Tablets No Active Unknown 04/14/2015 - Medications 12/29/2017 Lisinopril 1 by mouth every day 30tabs Arnel Hassan 11/26/2014 - 10mg Gilbert De Santiago 04/14/2015 Tablets Escitalopram /-1/2 by mouth every day 30tabs Arnel Hassan 09/06/2014 - Oxalate Gilbert De Santiago 04/14/2015 20mg Tablets Thiamine HCL 1 by mouth every day 100tabs Arnel Hassan 09/03/2014 - Gilbert De Santiago 04/14/2015 100mg Tablets No Active Unknown 05/04/2013 - Medications 05/04/2013 Medrol Dosepak as directed 1tacristian Hassan 05/04/2013 - Gilbert De Santiago 05/14/2013 4mg Tablets [place] Nail apply qhs to affected 709.9 Singh A. 06/18/2008 - Lacquer nail, clean nail with Gilbert Lofton 10/04/2008 8% alcohol every 7 days Solution suff one month Chantix 1 starter pack as 1units Arnel KatelynNyla 02/02/2008 - [facility] directed, then refill Gilbert De Santiago 10/04/2008 maintenance packs Pyridium 1 PO tid prn 15tabs Arnel Hassan 11/14/2007 - 200mg Gilbert De Santiago 12/15/2007 Tablets Floxin 1 po bid 28tabs Arnel Hassan 11/14/2007 - 300mg Gilbert De Santiago 12/15/2007 Tablets Norvasc 1 PO qd 30tabs Arnel Mo 08/15/2007 - 2.5mg Gilbert De Santiago 11/14/2007 Tablets Metoprolol 1 po bid 180tabs Arnel Hassan 08/15/2007 - 100mg Gilbert De Santiago 05/04/2013 Tablets Penicillin VK 1 PO qid 40tabs Arnel Hassan 08/15/2007 - Gilbert De Santiago 11/14/2007 250mg Tablets Norvasc 1 PO qd 90tabs 401.9 Arnel Hassan 08/15/2007 - 2.5mg Gilbert De Santiago 11/14/2007 Tablets Augmentin 1 PO bid 20tabs Arnel FNyla 01/10/2007 - 875mg Gilbert De Santiago 08/15/2007 Tablets Chantix 1 Starter Pack For A undante Hassan 01/10/2007 - Month,Then Refill Gilbert De Santiago 08/15/2007 Maintenance Packs Metoprolol 2 po bid 90tabs Arnel F. 01/03/2007 - 50mg Gilbert De Santiago 08/15/2007 Tablets Toprol XL 1 po qd 30tabs Sarmad Nice 06/25/2005 - 50mg Gilbert Davidson 06/25/2005 Tablets Metoprolol 1 po bid 60tabs Sarmad Nice 06/25/2005 - 25mg Gilbert Davidson 01/03/2007 Tablets Biaxin 1 PO bid 28tabs Sarmad Nice 08/31/2002 - 500mg Tabduke Davidson M.D. 06/11/2003 Duratuss 1 PO bid prn Head 20units Sarmad Nice 08/31/2002 - Congestion Gilbert Davidson 06/11/2003 Oxycodone 0units Sarmad Nice 07/06/2002 - 0 Gilbert Davidson 06/11/2003 Physical Therapy Treatment And Evaluation [id number] Sarmad Nice 07/06/2002 - For LT Gilbert Davidson 06/11/2003 Cervicalradiculopathy Into Radial Distribution Skelaxin 2 PO tid 30units Sarmad Nice 07/06/2002 - 400mg Gilbert Davidson 06/11/2003 Prinivil 1 PO qd 30units Keegan Cantrell 04/06/2002 - 10mg Gilbert Reilly 06/25/2005 Altace 1 PO qd 30units Donis Rock 03/08/2001 - 5mg Gilbert Britton 04/06/2002 Cipro 1 PO bid 14tabs Shaw Lubin 02/13/2001 - 250mg Tabduke Hilario M.D. 08/30/2001 Relafen 1 PO bid 14units Shaw Lubin 02/13/2001 - 500mg Gilbert Hilario 04/06/2002 Keflex 1 PO tid 20units Taiwo Nice 02/11/2001 - 5Oomg Gilbert Valencia 08/30/2001 Altace 1 PO qd 30units Shaw Lubin 01/26/2001 - 5mg Gilbert Hilario 02/25/2001 Mentax Apply bid To Feet 45gm Shaw Lubin 01/26/2001 - Cream Gilbert Hilario 02/25/2001 Keflex 1 PO qid 28units Shaw Lubin 01/19/2001 - 5Oomg Gilbert Hilario 01/26/2001 Suprax 1 PO qd 7units Demian Martinez 07/21/2000 - 400mg Gilbert Melo 07/28/2000 Entex LA 1 PO bid 20units Donis Rock 09/05/1997 - Gilbert Britton 01/19/2001 Suprax 1 PO qd 7undante Donis Rock 09/05/1997 - 400mg Gilbert Britton 01/19/2001 Uroxatral qd Unknown - 10mg 10/04/2008 Tablets ER 24HR Metoprolol take one tablet by mouth 60tabs Arnel F. - Tartrate two times daily Gilbert De Santiago 04/14/2015 100mg Tablets Immunizations CPT Code Status Date Vaccine Lot # [id number] Given 07/18/2018 Influenza Vac, Quadrivalent, Slit Virus, Im [id number] Given 10/17/2004 Tetanus And Diptheria Adult Preservative Free >7Yrs Vital Signs Date Vital Result Comment 04/05/2019 4:35pm BP Systolic 120 mmHg BP Diastolic 84 mmHg Heart Rate 68 /min Body Temperature 97.9 F Respiratory Rate 20 /min Weight 187.00 lb 01/02/2019 12:25pm BP Systolic 118 mmHg BP Diastolic 70 mmHg Heart Rate 64 /min Body Temperature 97.7 F Respiratory Rate 16 /min Weight 188.00 lb 10/31/2018 2:59pm BP Systolic 116 mmHg BP Diastolic 70 mmHg Heart Rate 78 /min Body Temperature 97.9 F Respiratory Rate 20 /min Weight 182.00 lb 10/12/2018 3:57pm BP Systolic 146 mmHg BP Diastolic 82 mmHg Heart Rate 68 /min Body Temperature 97.4 F Respiratory Rate 16 /min Height 71 inches 5'11" Weight 181.00 lb BMI (Body Mass Index) 25.2 kg/m2 09/26/2018 3:36pm BP Systolic 130 mmHg BP Diastolic 86 mmHg Heart Rate 60 /min Body Temperature 98.1 F Respiratory Rate 16 /min Height 71 inches 5'11" Weight 182.00 lb BMI (Body Mass Index) 25.4 kg/m2 08/08/2018 2:23pm BP Systolic 148 mmHg BP Diastolic 88 mmHg Heart Rate 64 /min Body Temperature 97.5 F Respiratory Rate 16 /min Height 71 inches 5'11" Weight 176.38 lb BMI (Body Mass Index) 24.6 kg/m2 07/18/2018 4:09pm BP Systolic 154 mmHg BP Diastolic 88 mmHg Heart Rate 68 /min Body Temperature 97.9 F Respiratory Rate 20 /min Weight 159.00 lb 06/15/2018 5:40pm BP Systolic 170 mmHg BP Diastolic 100 mmHg Heart Rate 68 /min Body Temperature 98.4 F Respiratory Rate 16 /min Weight 174.00 lb 06/01/2018 1:22pm BP Systolic 190 mmHg BP Diastolic 100 mmHg Heart Rate 88 /min Body Temperature 98.4 F Respiratory Rate 24 /min Weight 174.00 lb 05/26/2018 9:35am BP Systolic 190 mmHg BP Diastolic 110 mmHg BP Systolic Recheck 170 mmHg 10 min later BP Diastolic Recheck 110 mmHg 10 min later Heart Rate 68 /min 05/12/2018 12:58pm BP Systolic 176 mmHg BP Diastolic 100 mmHg Heart Rate 76 /min Body Temperature 98.8 F Respiratory Rate 16 /min Height 71 inches 5'11" Weight 172.25 lb BMI (Body Mass Index) 24.0 kg/m2 04/15/2018 10:20am BP Systolic 158 mmHg BP Diastolic 108 mmHg Heart Rate 78 /min Body Temperature 98.6 F Respiratory Rate 16 /min Height 71 inches 5'11" Weight 175.00 lb BMI (Body Mass Index) 24.4 kg/m2 12/29/2017 3:19pm BP Systolic 162 mmHg BP Diastolic 108 mmHg Heart Rate 72 /min Body Temperature 98.4 F Respiratory Rate 18 /min Height 71 inches 5'11" Weight 192.00 lb BMI (Body Mass Index) 26.8 kg/m2 04/14/2015 2:43pm BP Systolic 140 mmHg BP Diastolic 100 mmHg Heart Rate 68 /min Body Temperature 98.1 F Respiratory Rate 16 /min Height 71 inches 5'11" Weight 178.00 lb BMI (Body Mass Index) 24.8 kg/m2 11/26/2014 1:43pm BP Systolic 140 mmHg BP Diastolic 92 mmHg Heart Rate 60 /min Body Temperature 97.2 F Respiratory Rate 16 /min Height 71 inches 5'11" Weight 170.00 lb BMI (Body Mass Index) 23.7 kg/m2 09/06/2014 4:10pm BP Systolic 150 mmHg BP Diastolic 100 mmHg Heart Rate 58 /min Body Temperature 98.0 F Height 71 inches 5'11" Weight 169.00 lb BMI (Body Mass Index) 23.6 kg/m2 09/03/2014 6:41pm BP Systolic 200 mmHg BP Diastolic 100 mmHg Heart Rate 100 /min 05/04/2013 10:18am BP Systolic 140 mmHg BP Diastolic 90 mmHg Heart Rate 66 /min Body Temperature 98.0 F Respiratory Rate 16 /min Height 71 inches 5'11" Weight 163.00 lb BMI (Body Mass Index) 22.7 kg/m2 12/24/2008 3:17pm BP Systolic 124 mmHg BP Diastolic 84 mmHg Heart Rate 60 /min Weight 170.00 lb 10/04/2008 1:38pm BP Systolic 126 mmHg BP Diastolic 80 mmHg Heart Rate 88 /min Body Temperature 97.5 F Height 71.00 inches 5'11" Weight 168.00 lb BMI (Body Mass Index) 23.4 kg/m2 06/18/2008 1:43pm BP Systolic 120 mmHg BP Diastolic 72 mmHg Heart Rate 80 /min Height 71.00 inches 5'11" Weight 162.00 lb BMI (Body Mass Index) 22.6 kg/m2 02/02/2008 3:51pm BP Systolic 124 mmHg BP Diastolic 74 mmHg Heart Rate 64 /min Body Temperature 98.8 F Height 71.00 inches 5'11" Weight 169.00 lb BMI (Body Mass Index) 23.6 kg/m2 12/15/2007 12:14pm BP Systolic 144 mmHg BP Diastolic 82 mmHg Heart Rate 72 /min Body Temperature 97.6 F Height 71.00 inches 5'11" Weight 171.00 lb BMI (Body Mass Index) 23.8 kg/m2 11/22/2007 2:13pm BP Systolic 138 mmHg BP Diastolic 84 mmHg Heart Rate 80 /min Body Temperature 98.9 F Height 71.00 inches 5'11" Weight 183.00 lb BMI (Body Mass Index) 25.5 kg/m2 11/14/2007 3:09pm BP Systolic 140 mmHg BP Diastolic 94 mmHg Heart Rate 72 /min Body Temperature 98.9 F Height 71.00 inches 5'11" Weight 180.00 lb BMI (Body Mass Index) 25.1 kg/m2 08/15/2007 5:42pm BP Systolic 148 mmHg BP Diastolic 90 mmHg Heart Rate 64 /min Body Temperature 97.7 F Height 71.00 inches 5'11" Weight 203.00 lb BMI (Body Mass Index) 28.3 kg/m2 01/10/2007 5:02pm BP Systolic 168 mmHg BP Diastolic 110 mmHg Heart Rate 76 /min Height 71.00 inches 5'11" Weight 197.00 lb BMI (Body Mass Index) 27.5 kg/m2 06/25/2005 11:04am BP Systolic 168 mmHg BP Diastolic 114 mmHg Heart Rate 88 /min Height 71.00 inches 5'11" Weight 192.00 lb BMI (Body Mass Index) 26.8 kg/m2 09/18/2004 9:33am BP Systolic 158 mmHg BP Diastolic 108 mmHg Heart Rate 96 /min Height 71.00 inches 5'11" Weight 200.00 lb BMI (Body Mass Index) 27.9 kg/m2 06/11/2003 4:15pm BP Systolic 158 mmHg BP Diastolic 110 mmHg Heart Rate 96 /min Height 71.00 inches 5'11" Weight 198.00 lb BMI (Body Mass Index) 27.6 kg/m2 08/31/2002 3:17pm BP Systolic 148 mmHg BP Diastolic 96 mmHg Heart Rate 76 /min Body Temperature 97.5 F Height 71.00 inches 5'11" Weight 200.00 lb BMI (Body Mass Index) 27.9 kg/m2 07/06/2002 9:35am BP Systolic 140 mmHg BP Diastolic 98 mmHg Heart Rate 64 /min Height 71.00 inches 5'11" Weight 198.00 lb BMI (Body Mass Index) 27.6 kg/m2 04/06/2002 10:50am BP Systolic 150 mmHg BP Diastolic 98 mmHg Heart Rate 80 /min Height 71.00 inches 5'11" Weight 200.00 lb BMI (Body Mass Index) 27.9 kg/m2 03/23/2001 1:00pm BP Systolic 134 mmHg BP Diastolic 80 mmHg Heart Rate 72 /min Height 71.00 inches 5'11" Weight 190.00 lb BMI (Body Mass Index) 26.5 kg/m2 02/11/2001 11:34am BP Systolic 140 mmHg BP Diastolic 90 mmHg Heart Rate 80 /min Body Temperature 97.7 F Height 71.00 inches 5'11" 01/26/2001 3:18pm BP Systolic 158 mmHg BP Diastolic 102 mmHg Heart Rate 96 /min Height 71.00 inches 5'11" Weight 192.00 lb BMI (Body Mass Index) 26.8 kg/m2 01/19/2001 4:11pm BP Systolic 170 mmHg BP Diastolic 114 mmHg Body Temperature 97.5 F Height 71.00 inches 5'11" Weight 192.00 lb BMI (Body Mass Index) 26.8 kg/m2 07/21/2000 11:44am BP Systolic 146 mmHg BP Diastolic 90 mmHg Heart Rate 96 /min Body Temperature 97.6 F Height 71.00 inches 5'11" Weight 197.00 lb BMI (Body Mass Index) 27.5 kg/m2 09/05/1997 12:00am BP Systolic 150 mmHg BP Diastolic 92 mmHg Body Temperature 97.6 F Height 71.00 inches 5'11" Weight 175.00 lb Results Test Date Facility Test Result H/L Range Note Laboratory test 02/26/2019 [facility] Surgical SEE RESULT 1 finding Interface Order BELOW Urinalysis Profile 10/10/2018 [facility] Urine Color Yellow Urine Appearance Clear Urine Specific [place] 1.015 N 1.010-1.030 Urine pH 5.0 N 5-9 Urine Urobilinogen Negative Negative Urine Ketones Negative Negative Urine Protein Negative Negative Urine Leukocytes Negative Negative Urine Blood Negative Negative * * Abnormal Negative 2 Urine Nitrite Negative Negative Urine Bilirubin Negative Negative Urine Glucose Negative Negative CBC Auto Diff 10/10/2018 [facility] White Blood Count 5.9 10^3/uL N 3.5-10.8 Red Blood Count 4.72 10^6/uL N 4.00-5.40 Hemoglobin 15.3 g/dL N 14.0-18.0 Hematocrit 46 % N 42-52 Mean Corpuscular Volume 96 fL High 80-94 Mean Corpuscular Hemoglobin 32 pg High 27-31 Mean Corpuscular HGB Conc 34 g/dL N 31-36 Red Cell Distribution Width 13 % N 10.5-15 Platelet Count 206 10^3/uL N 150-450 Mean Platelet Volume 8.6 fL N 7.4-10.4 Abs Neutrophils 4.3 10^3/uL N 1.5-7.7 Abs Lymphocytes 0.9 10^3/uL Low 1.0-4.8 Abs Monocytes 0.5 10^3/uL N 0-0.8 Abs Eosinophils 0.2 10^3/uL N 0-0.6 Abs Basophils 0 10^3/uL N 0-0.2 Abs Nucleated RBC 0 10^3/uL Granulocyte % 72.6 % Lymphocyte % 15.3 % Monocyte % 7.9 % Eosinophil % 3.5 % Basophil % 0.7 % Nucleated Red Blood Cells % 0.1 Comp Metabolic Panel 10/10/2018 [facility] Sodium 135 mmol/L N 135-145 Potassium 3.9 mmol/L N 3.5-5.0 Chloride 107 mmol/L N 101-111 Co2 Carbon Dioxide 24 mmol/L N 22-32 Anion Gap 4 mmol/L N 2-11 Glucose 110 mg/dL High 70-100 Blood Urea Nitrogen 13 mg/dL N 6-24 Creatinine 0.90 mg/dL N 0.67-1.17 BUN/Creatinine Ratio 14.4 N 8-20 Calcium 9.2 mg/dL N 8.6-10.3 Total Protein 6.9 g/dL N 6.4-8.9 Albumin 4.3 g/dL N 3.2-5.2 Globulin 2.6 g/dL N 2-4 Albumin/Globulin Ratio 1.7 N 1-3 Total Bilirubin 0.50 mg/dL N 0.2-1.0 Alkaline Phosphatase 73 U/L N 34-104 Alt 22 U/L N 7-52 Ast 17 U/L N 13-39 Egfr Non- 87.6 >60 Egfr 106.0 >60 3 Laboratory test finding 10/10/2018 [facility] Troponin I 0.00 ng/mL <0.04 4 Alcohol < 10 mg/dL N <10 TSH (Thyroid Stim Horm) 1.66 mcIU/mL N 0.34-5.60 Lipid Profile 08/08/2018 [facility](fma) Cholesterol 139 mg/dL 120- 200 Triglycerides 54 mg/dL 30-200 HDL Cholesterol 68 mg/dL 30-70 LDL (Calculated) 60 CALC 0-129 VLDL Cholesterol 11 mg/dL 0-50 HDL Risk Factor 2.0 CALC 0.0-4.4 Laboratory test 08/08/2018 [facility](fma) PSA 0.2 ng/mL 0.0-4.0 finding Basic Metabolic Panel 06/01/2018 [facility] Glucose 81 mg/dL 65-99 5 (3) [address] [place] [address] (441)- - BUN 15 mg/dL 6-24 Creatinine 0.83 mg/dL 0.76-1.27 eGFR If NonAfricn Am 100 mL/min/1.73 >59 eGFR If Africn Am 115 mL/min/1.73 >59 BUN/Creatinine Ratio 18 9-20 Sodium 141 mmol/L 134-144 Potassium 3.8 mmol/L 3.5-5.2 Chloride 106 mmol/L 96-106 Carbon Dioxide, Total 21 mmol/L 20-29 Calcium 9.0 mg/dL 8.7-10.2 Laboratory test 05/12/2018 [facility] Thyroxine (T4) 1.06 ng/dL 0.82-1.77 6 finding [address] [facility] [address] [place] [address] (607)- - TSH 0.972 uIU/mL 0.450-4.500 CBC With 05/12/2018 [facility] WBC 7.6 x10E3/uL 3.4-10.8 Differential/Platelet [address] [place] [address] (607)- - RBC 4.56 x10E6/uL 4.14-5.80 Hemoglobin 15.2 g/dL 13.0-17.7 Hematocrit 44.6 % 37.5-51.0 MCV 98 fL High 79-97 MCH 33.3 pg High 26.6-33.0 MCHC 34.1 g/dL 31.5-35.7 RDW 13.7 % 12.3-15.4 Platelets 177 x10E3/uL 150-379 Neutrophils 72 % Not Estab. Lymphs 17 % Not Estab. Monocytes 10 % Not Estab. Eos 1 % Not Estab. Basos 0 % Not Estab. Immature Cells TNP Neutrophils (Absolute) 5.5 x10E3/uL 1.4-7.0 Lymphs (Absolute) 1.3 x10E3/uL 0.7-3.1 Monocytes(Absolute) 0.7 x10E3/uL 0.1-0.9 Eos (Absolute) 0.1 x10E3/uL 0.0-0.4 Baso (Absolute) 0.0 x10E3/uL 0.0-0.2 Immature Granulocytes 0 % Not Estab. Immature Grans (Abs) 0.0 x10E3/uL 0.0-0.1 NRBC TNP Hematology Comments: TNP Metabolic Panel (14), 05/12/2018 [facility] Glucose 90 mg/dL 65-99 Comprehensive [address] [place] [address] (607)- - BUN 13 mg/dL 6-24 Creatinine 0.80 mg/dL 0.76-1.27 eGFR If NonAfricn Am 101 mL/min/1.73 >59 eGFR If Africn Am 117 mL/min/1.73 >59 BUN/Creatinine Ratio 16 9-20 Sodium 140 mmol/L 134-144 Potassium 4.1 mmol/L 3.5-5.2 Chloride 100 mmol/L 96-106 Carbon Dioxide, Total 23 mmol/L 20-29 Calcium 8.9 mg/dL 8.7-10.2 Protein, Total 6.9 g/dL 6.0-8.5 Albumin 4.6 g/dL 3.5-5.5 Globulin, Total 2.3 g/dL 1.5-4.5 A/G Ratio 2.0 1.2-2.2 Bilirubin, Total 0.5 mg/dL 0.0-1.2 Alkaline Phosphatase 86 IU/L 39-117 Ast (Sgot) 21 IU/L 0-40 Alt (SGPT) 22 IU/L 0-44 CBC Auto Diff 12/12/2014 [facility] White Blood Count 6.6 10^3/uL N 4.8-10.8 Red Blood Count 4.45 10^6/uL N 4.0-5.4 Hemoglobin 15.1 g/dL N 14.0-18.0 Hematocrit 44 % N 42-52 Mean Corpuscular Volume 99 fL High 80-94 Mean Corpuscular Hemoglobin 34 pg High 27-31 Mean Corpuscular HGB Conc 34 g/dL N 31-36 Red Cell Distribution Width 13 % N 10.5-15 Platelet Count 198 10^3/uL N 150-450 Mean Platelet Volume 8 um3 N 7.4-10.4 Abs Neutrophils 3.5 10^3/uL N 1.5-7.7 Abs Lymphocytes 2.0 10^3/uL N 1.0-4.8 Abs Monocytes 0.7 10^3/uL N 0-0.8 Abs Eosinophils 0.3 10^3/uL N 0-0.6 Abs Basophils 0.1 10^3/uL N 0-0.2 Abs Nucleated RBC 0 10^3/uL N Granulocyte % 53.4 % N 38-83 Lymphocyte % 30.6 % N 25-47 Monocyte % 10.6 % High 1-9 Eosinophil % 4.3 % N 0-6 Basophil % 1.1 % N 0-2 Nucleated Red Blood Cells % 0 N Comp Metabolic Panel 12/12/2014 [facility] Sodium 136 mmol/L N 133-145 Potassium 3.5 mmol/L N 3.5-5.0 Chloride 102 mmol/L N 101-111 Co2 Carbon Dioxide 25 mmol/L N 22-32 Anion Gap 9 mmol/L N 2-11 Glucose 97 mg/dL N 70-100 Blood Urea Nitrogen 15 mg/dL N 6-24 Creatinine 0.83 mg/dL N 0.67-1.17 BUN/Creatinine Ratio 18.1 N 8-20 Calcium 9.1 mg/dL N 8.6-10.3 Total Protein 7.0 g/dL N 6.4-8.9 Albumin 4.4 g/dL N 3.2-5.2 Globulin 2.6 g/dL N 2-4 Albumin/Globulin Ratio 1.7 N 1-3 Total Bilirubin 0.30 mg/dL N 0.2-1.0 Alkaline Phosphatase 72 U/L N 34-104 Alt 21 U/L N 7-52 Ast 25 U/L N 13-39 Egfr Non- 97.7 N >60 Egfr 125.6 N >60 7 Laboratory test finding 12/12/2014 [facility] Magnesium 2.0 mg/dL N 1.9-2.7 Troponin I 0.01 ng/mL N <0.03 8 Alcohol 124 mg/dL High <10 TSH (Thyroid Stimulating Horm) 1.27 IU/mL N 0.34-5.60 CBC Auto Diff 11/08/2014 [facility] White Blood Count 6.3 10^3/uL N 4.8-10.8 Red Blood Count 4.72 10^6/uL N 4.0-5.4 Hemoglobin 15.9 g/dL N 14.0-18.0 Hematocrit 47 % N 42-52 Mean Corpuscular Volume 100 fL High 80-94 Mean Corpuscular Hemoglobin 34 pg High 27-31 Mean Corpuscular HGB Conc 34 g/dL N 31-36 Red Cell Distribution Width 13 % N 10.5-15 Platelet Count 182 10^3/uL N 150-450 Mean Platelet Volume 9 um3 N 7.4-10.4 Abs Neutrophils 4.8 10^3/uL N 1.5-7.7 Abs Lymphocytes 0.8 10^3/uL Low 1.0-4.8 Abs Monocytes 0.6 10^3/uL N 0-0.8 Abs Eosinophils 0.1 10^3/uL N 0-0.6 Abs Basophils 0 10^3/uL N 0-0.2 Abs Nucleated RBC 0 10^3/uL N Granulocyte % 75.6 % N 38-83 Lymphocyte % 13.1 % Low 25-47 Monocyte % 9.3 % High 1-9 Eosinophil % 1.5 % N 0-6 Basophil % 0.5 % N 0-2 Nucleated Red Blood Cells % 0 N Comp Metabolic Panel 11/08/2014 [facility] Sodium 136 mmol/L N 133-145 Potassium 4.3 mmol/L N 3.5-5.0 Chloride 102 mmol/L N 101-111 Co2 Carbon Dioxide 29 mmol/L N 22-32 Anion Gap 5 mmol/L N 2-11 Glucose 102 mg/dL High 70-100 Blood Urea Nitrogen 15 mg/dL N 6-24 Creatinine 0.78 mg/dL N 0.67-1.17 BUN/Creatinine Ratio 19.2 N 8-20 Calcium 9.5 mg/dL N 8.6-10.3 Total Protein 7.9 g/dL N 6.4-8.9 Albumin 5.0 g/dL N 3.2-5.2 Globulin 2.9 g/dL N 2-4 Albumin/Globulin Ratio 1.7 N 1-3 Total Bilirubin 0.60 mg/dL N 0.2-1.0 Alkaline Phosphatase 76 U/L N 34-104 Alt 22 U/L N 7-52 Ast 21 U/L N 13-39 Egfr Non- 104.9 N >60 Egfr 135.0 N >60 9 Laboratory test 11/08/2014 [facility] C Reactive 1.41 mg/L N < 5.00 10 finding Protein CBC (Fma) 10/04/2008 [facility] WBC 8.9 3.6-9.6 (607)- - RBC 4.58 3.90-5.70 Hemoglobin (Fma/[facility]/CTX) 15.2 g/dL 12.1 - 17.2 Hematocrit (Fma/CMC/CTX) 44.5 % 36.1 - 50.3 Mean Corpuscular Vol 97.2 82.2-97.4 Mean Corpuscular Hemaglobin 33.2 27.6-33.3 Mean Corpuscular Hemo Concen 34.2 33.0-36.0 Platelets 167 10^3/ul 150-400 Lymph% 19.8 Low 20.5-51.1 Mixed% 11.1 Neutrophils % 69.1 RDW 12.5 11.6-13.7 Mean Platelet Volume 11.0 High 7.4-10.4 Comprehensive Metabolic 10/04/2008 [facility]) Albumin 4.2 g/dL 3.8-5.5 Prof Alk. Phos. 65 U/L 22-95 Alt (SGPT) [...] BUN/Creat Ratio 19.2 Calc 8.0-36.0 Laboratory test 10/04/2008 [facility]) TSH 1.43 mIU/L 0.50-6.00 finding Laboratory test 10/04/2008 [facility] Hep B Surface NEGATIVE Negative 11 finding [address] [facility] [place] [address] [phone] Hep C Abs 10/04/2008 [facility] Hep C Antibody NEGATIVE Negative [address] [place] [address] [phone] CBC With 01/25/2008 [facility] White Blood 6.4 CUMM 4.8-10.8 12 Electronic Diff Count Stat Abs Basophils 0 0-0.2 Abs Eosinophils 0.1 0-0.6 Absolute Neutrophil Count 4.9 1.5-7.7 Abs Lymphs 0.9 Low 1.0-4.8 Abs Mononuclear 0.5 0-0.8 Basophil % 0.3 % 0-2 Hematocrit 45 % 42-52 13 Hemoglobin 15.9 g/dL 14.0-18.0 Eosinophil % 1.6 % 0-6 Gran % 75.4 % 38-83 Lymph % 14.7 % Low 20-45 Mean Corpuscular HGB [facility] 35 g/dL 32-36 Mean Corpuscular Hemoglob 35 pg High 27-31 Mean Corpuscular Volume 99 um3 High 80-94 Mean Platelet Volume 9.3 um3 7.4-10.4 Mononuclear % 8.0 % 1-9 Platelet Count 148 CUMM Low 150-450 Red Cell Count 4.55 CUMM Low 4.6-6.2 Redcell Distribution WDTH 14 % 10.5-15 Laboratory test 01/25/2008 [facility] Alcohol 81.1 mg/dL High None Detected 14 finding Comp Stat 01/25/2008 [facility] One Over 1.25 Creatinine Anion Gap 8.0 mmol/L 2-11 15 Albumin/Globulin Ratio 1.4 1-3 Albumin 4.4 GM/DL 3.6-5.4 Alkaline Phosphatase 62 U/L 39-117 Alt (SGPT) 57 U/L 17-63 Ast (Sgot) 37 U/L 12-42 BUN 17 mg/dL 6-24 Calcium 8.9 mg/dL 8.7-10.2 Chloride 103 mmol/L 101-111 Co2 (Carbon Dioxide) 26.0 mmol/L 22-32 Globulin 3.1 GM/DL 2-4 Glucose 117 mg/dL High 70-105 Potassium 3.6 mmol/L 3.5-5.0 Sodium 137 mmol/L 135-145 Bilirubin Total 0.6 mg/dL 0.4-1.5 Total Protein 7.5 GM/DL 6.2-8.1 BUN/Creatinine Ratio 21.3 High 8-20 Creatinine 0.8 mg/dL 0.5-1.4 Laboratory test 01/25/2008 [facility] Troponin-I (TnI) 0.03 NG/ML 0-0.06 16 finding Drug Screen Urine 01/25/2008 [facility] Amphetamines Urine NONE DETECTED None Detect Screen Benzodiazepine Ur Screen NONE DETECTED None Detect Cocaine Metabolites Urine NONE DETECTED None Detect Opiates Urine Screen NONE DETECTED None Detect PCP Urine Screen NONE DETECTED None Detect 17 Cannabinoid Urine Screen NONE DETECTED None Detect Barbituates Urine Screen NONE DETECTED None Detect Urinalysis W/Microscopic Stat 01/25/2008 [facility] Ua Color YELLOW Appearance-Urine CLEAR Bilirubin-Ur NEGATIVE Negative Blood-Urine NEGATIVE Negative Epith Cells-Ur RARE Esterase-Urine TRACE Abnormal Negative Glucose-Urine NEGATIVE Negative Ketones-Urine NEGATIVE Negative Nitrite NEGATIVE Negative PH-Urine 5.0 5-9 Protein-Urine NEGATIVE Negative RBC-Urine NONE SEEN 0-2 Takrbrdwddfv-Un-YGP NEGATIVE Negative Specific [place]-Ur 1.019 1.010-1.030 WBC-Urine 0-2 0-5 Ua - Micro (Fma) 12/15/2007 [facility] Appearance clear (607)- - Color yellow Glucose, Urine (Fma/CMC/CTX) - Bilirubin - Ketones 2+ # SP Grav >1.030 # Blood - PH 5.5 Protein - Urobil - Nitrite - Leukocytes (Fma/[facility]) - Hyaline no specimen /Lpf Granular saved for micro /Lpf Comprehensive Metabolic 12/15/2007 Hai Lozada(a) Albumin 4.4 g/dL 3.8-5.5 Prof Alk. Phos. 79 U/L 22-95 Alt (SGPT) [...] Ratio 14.5 Calc 8.0-36.0 Lipid Profile 12/15/2007 Hai Lozada([facility]) Cholesterol 143 mg/dL 120- 200 HDL 87 mg/dL High 30-70 18 Triglycerides 74 mg/dL 30-200 HDL Risk Factor 1.6 CALC Low 4.2-7.0 LDL (Calculated) 41 CALC 0-129 VLDL (Calculated) 15 mg/dL 0-50 Complete Blood Count 12/15/2007 Hai Lozada([facility]) WBC 6.6 x10^3/u 3.6- 9.6 Gran# 5.2 x10^3/u 1.5-7.2 Gran% 78.5 % [...] 3.90-5.70 RDW 13.3 % 11.6-13.7 Laboratory test 12/15/2007 Hai Lozada([facility]) PSA 0.20 ng/mL 0.00-4.00 finding CBC With 11/16/2007 [facility] White Blood 9.2 CUMM 4.8-10.8 Electronic Diff Count Stat Abs Basophils 0.1 0-0.2 Abs Eosinophils 0.2 [...] WDTH 12 % 10.5-15 Alcohol Stat 11/16/2007 [facility] Alcohol 324.0 mg/dL High None Detected 19 Basic Metabolic 11/16/2007 [facility] One Over 1.25 Panel Stat Creatinine Anion Gap 13.0 mmol/L High 2-11 20 BUN 8 mg/dL 6-24 Calcium 8.9 mg/dL 8.7-10.2 Chloride 102 mmol/L 101-111 Co2 (Carbon Dioxide) 26.0 mmol/L 22-32 Glucose 96 mg/dL 70-105 Potassium 3.8 mmol/L 3.5-5.0 Sodium 141 mmol/L 135-145 BUN/Creatinine Ratio 10.0 8-20 Creatinine 0.8 mg/dL 0.5-1.4 Ua - Micro (a) 11/14/2007 [facility] Appearance CLEAR (607)- - Color LT YELLOW Glucose NEG Bilirubin NEG Ketones 1+ SP Grav 1.015 Blood NEG PH 7.0 Protein SSA NEG Urobil 1.0 Nitrite NEG Leukocytes (Fma/CMC/[facility]) TRACE Hyaline - /Lpf Granular - /Lpf WBC (a,[facility]) 10-15 RBC - Mucus - /Lpf Epith - /Lpf Bacteria PRESENT /Hpf Amorphous - /Lpf Crystals, Fluid (Fma/CMC/CTX) - Z#Comments - GC/Chlamydia Probe, 11/14/2007 [facility] Chlamydia NEGATIVE Urine 28 [facility] [place] [address] [phone] GC Amplified Probe NEGATIVE Laboratory test 11/14/2007 [facility] Urine Culture NEGATIVE finding (607)- - (Fma/[facility]) CBC With Manual 12/25/2001 [facility] WBC 8.2 4.8-10.8 Diff ([facility]) RBC 5.15 4.6-6.2 Hemoglobin 16.7 g/dL 14.0-18.0 Hematocrit 48 % 42-52 Mean Corpuscular Vol 93 80-94 Mean Corpuscular Hemaglobin 32 High 27-31 Mean Corpuscular Hemo Concen 35 32-36 RDW 12 10.5-15 Platelets 192 CUMM 150-450 Mean Platelet Volume 8.4 7.4-10.4 Poly From [facility] 72 38-83 Band - 0-8 Lymph From [facility] 21 5-47 Larue From [facility] 3 0-13 Eos From [facility] 2 0-6 Atypical Lymph 2 0-6 Morphology NORMAL Basophils - Basic Metabolic ([facility]) 12/25/2001 [facility] Sodium 141 mmol/L 135-145 Potassium 3.7 3.5-5.0 Chloride 103 mmol/L 95-108 Co2 25.8 21-33 Glucose 139 mg/dL High 70-105 BUN 20 6-22 Creatinine 1.0 mg/dL 0.5-1.4 BUN/Creatinin Ratio 20.0 8-20 Calcium 9.4 mg/dL 8.7-10.2 Lipid Profile ([facility]) 01/26/2001 [facility] Cholesterol 140 mg/dL 140 -200 (607)- - Triglyceride 55 mg/dL 30-150 VLDL 11 0-50 LDL-Calculated 76 0-160 HDL-Chol 53 35-85 Comp Plus Liver ([facility]) 01/26/2001 [facility] Albumin 4.6 3.8-5.5 (607)- - Alkaline Phosphatase 86 U/L 42-98 Bilirubin, Direct [...] BUN/Creatinin Ratio 22.5 8.0-36 CBC With Diff ([facility]) 01/26/2001 [facility] WBC 8.2 3.6-9.6 (607)- - Lymphocytes 15.9 % Low 20.5 - 51.1 [...] Volume 9.8 7.4-10.4 Ua - Non Micro (Fma New) 01/26/2001 [facility] Appearance CLEAR YELLOW (607)- - Glucose - Bilirubin - Ketones - SP Grav >=1.030 Blood - PH 5.0 Protein - Urobil 0.2 Nitrite - Leukocytes - 1 SEE RESULT BELOW Name: ROMÁN UNDERWOOD V : [address]: Abrahan Ramirez MD Acct: [id number] Unit: [id number] AGE: 53 Location: ENDO Re02/26/19 SEX: M Status: DEP REF SPEC: [id number] JAYME: 02/26/19-[address]: Abrahan Ramirez MD REQ: [id number] RECD: 02/26/19233 STATUS: YURI ISAAC DR: Arnel De Santiago MD _ ORDERED: LEVEL 4/2 FINAL DIAGNOSIS 1. Colon, cecum, biopsy: -- Tubular adenoma. -- No high grade dysplasia or malignancy. 2. Colon, at 10 cm, biopsy: -- Tubular adenoma. -- No high grade dysplasia or malignancy. POST-OPERATIVE DIAGNOSIS Colonoscopy: to terminal ileum; cecal polyp - cold snare; at 10 cm - snare cautery (1) biopsy (1) GROSS DESCRIPTION 1. The specimen is received in formalin labeled, Cecal Polyp, and consists of a 0.9 x 0.7 x 0.1 cm aggregate of leon-pink irregular soft tissue fragments which is submitted entirely in one cassette. 2. The specimen is received in formalin labeled, Colon Polyps at 10 cm, and consists of a 1.4 x 1.1 x 0.4 cm aggregate of leon-red irregular to polypoid soft tissue fragments which is submitted entirely in one cassette. Signed by and Reported on: Kimi Marcos MD 02/27/19 1201 END OF REPORT DEPARTMENT OF PATHOLOGY, [address] [place] [address] Demian Sabillon M.D. Director [facility] # [id number] 2 *Ascorbic acid is present which may interfere with detection of blood. 3 Because ethnic data is not always [...] 5 Kidney failure <15 (or dialysis) 4 Troponin-I testing on Plasma Separator Tubes (PST) has a known false positive rate of 0.20-0.40%. All positive troponins reflex immediate secondary confirmatory testing. 5 1 sst 6 2 SSTS 7 Because ethnic data is not always readily [...] 15-29 5 Kidney failure <15 (or dialysis) 8 Reference Range and Interpretation: TnI (ng/mL) Interpretation Less Than 0.03 ng/mL Not supportive of diagnosis of [place] 0.03 - 0.50 ng/mL Indeterminate: suggest serial studies if clinically indicated. Greater than 0.5 ng/mL Consistent with diagnosis of [place] 9 Because ethnic data is not always readily [...] 15-29 5 Kidney failure <15 (or dialysis) 10 Acute inflammation: >10.00 11 1 SST 12 COMMENTS? THANK-YOU 13 Lymphopenia % 14 The detection limit for ETHANOL is 10.0 mg/dl . Values less than 10.0 mg/dl cannot be accurately measured. . 15 Anion gap measurement may be of limited value in the presence of any alkalosis, especially in a combined acid base disorder. . 16 New Reference Range and Interpretation effective 07/20/02 TnI (ng/ml) INTERPRETATION <0.06 ng/ml NOT SUPPORTIVE OF DIAGNOSIS OF [place] 0.06 - 0.50 ng/ml INDETERMINATE: SUGGEST SERIAL STUDIES IF CLINICALLY INDICATED. > 0.5 ng/ml CONSISTENT WITH DIAGNOSIS OF [place] . 17 THE URINE SPECIMEN WAS TESTED AT THE LISTED CUTOFFS: DRUG CLASS TEST LEVEL (NG/ML) AMPHETAMINES 300 BARBITUATES 200 BENZODIAZEPINE METABOLITES 200 COCAINE METABOLITES 300 CANNABINOIDS 25 OPIATES 200 PCP 25 THIS IS A SCREENING PROCEDURE. POSITIVE RESULTS ARE NOT CONFIRMED. SPECIMEN WAS RECEIVED WITHOUT CHAIN OF CUSTODY. RESULTS SHOULD BE USED FOR MEDICAL PURPOSES ONLY. . 18 RESULT ALVINO'D 19 VERBAL TO VIRIDIANA BY LIAT at 0354 on 11/16/07. Results read back accurately. The detection limit for ETHANOL is 10.0 mg/dl . Values less than 10.0 mg/dl cannot be accurately measured. . 20 Anion gap measurement may be of limited value in the presence of any alkalosis, especially in a combined acid base disorder. . Procedures Date Code Description Status 02/26/2019 [id number] Colonoscopy Completed 04/14/2015 56817 Electrocardiogram Complete Completed 09/03/2014 49399 Electrocardiogram Complete Completed Encounters Type Date Location Provider Dx Diagnosis Office Visit 01/02/2019 Main Office Arnel De Santiago, Leo Essential ( primary) 10:40a M.D. hypertension B35.2 Tinea manuum H60.92 Unspecified otitis externa, left ear Office Visit 10/31/2018 3:00p Main Office Arnel De Santiago M.D. B35.2 Tinea manuum B35.6 Tinea cruris L30.4 Erythema intertrigo I10 Essential (primary) hypertension Office Visit 10/12/2018 3:00p Main Office Arnel De Santiago M.D. B35.2 Tinea manuum B35.6 Tinea cruris I10 Essential (primary) hypertension Office Visit 09/26/2018 2:20p Main Office Sage Putnam0 Essential (primary) M.D. hypertension F10.21 Alcohol dependence, in remission B35.6 Tinea cruris L01.09 Other impetigo Office Visit 08/08/2018 2:20p Main Office Arnel De Santiago, Sage0 Essential (primary) M.D. hypertension N40.0 Benign prostatic hyperplasia without lower urinry tract symp B35.2 Tinea manuum R00.2 Palpitations Office Visit 07/18/2018 3:20p Main Office Arnel De Santiago, Z23 Encounter for M.D. 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 785.1 Palpitations V11.3 History Personal Alcoholism Office Visit 11/26/2014 1:40p Main Office Arnel De Santiago, 401.9 Hypertension Unspec M.D. 311 Depressive Disorder Not Elsewhere Spec Office Visit 09/06/2014 4:20p [facility] Office Arnel Hassan 401.9 Hypertension Gilbert De Santiago Unspec V11.3 History Personal Alcoholism 785.1 Palpitations 311 Depressive Disorder Not Elsewhere Spec Office Visit 09/03/2014 6:50p Main Office Arnel De Santiago, V11.3 History Personal M.D. Alcoholism 401.9 Hypertension Unspec 785.1 Palpitations Office Visit 05/04/2013 10:20a [place] Arnel Hassan 728.87 Muscle Weakness Office Gilbert De Santiago Generalized Office Visit 12/24/2008 2:00p Main Office Arnel Hassan 786.50 Pain Chest Unspec Gilbert De Santiago Office Visit 10/04/2008 1:20p Main Office Arnel Hassan 709.9 Skin & Gilbert De Santiago Subcutaneous Tissue Disorders Unspec 401.9 Hypertension Unspec 794.8 Liver Study Abnormal 719.41 Pain Joint Shoulder Region Office Visit 06/18/2008 1:40p Main Office Francisco Lubin 709.9 Skin & Subcutaneous Gilbert Lofton Tissue Disorders Unspec Office Visit 02/02/2008 3:30p Main Office Arnel Hassan 401.9 Hypertension Unspec Gilbert De Santiago 311 Depressive Disorder Not Elsewhere Spec 601.9 Prostatitis Unspec V11.3 History Personal Alcoholism 305.1 Tobacco Use Disorder Office Visit 12/15/2007 11:00a Main Office Arnel De Santiago, 401.9 Hypertension Unspec M.D. 311 Depressive Disorder Not Elsewhere Spec 601.9 Prostatitis Unspec V11.3 History Personal Alcoholism Office Visit 11/22/2007 2:10p Main Office Taiwo Nice 601.9 Prostatitis Unspec Gilbert Valencia Office Visit 11/14/2007 1:30p Main Office Arnel De Santiago, 788.1 Dysuria M.D. 401.9 Hypertension Unspec 311 Depressive Disorder Not Elsewhere Spec V65.42 Counseling On Substance Use & Abuse Office Visit 08/15/2007 5:50p Main Office Arnel De Santiago, 401.9 Hypertension Unspec M.D. 305.1 Tobacco Use Disorder V76.41 Screening Malignant Neoplasm Rectum Office Visit 01/10/2007 5:00p Main Office Arnel De Santiago, 401.9 Hypertension Unspec M.D. 466.0 Bronchitis Acute 305.1 Tobacco Use Disorder 461.1 Sinusitis Acute Frontal Office Visit 06/25/2005 11:00a Main Office Sarmad Davidson, 401.9 Hypertension Unspec M.D. Office Visit 09/18/2004 9:30a Main Office Sneha Armenta, 782.2 Swelling Mass Or Afnp-C Lump Localized Superfical Office Visit 06/11/2003 4:10p Main Office Sarmad Davidson, 784.2 Swelling In Head & M.D. Neck 727.43 Ganglion Unspec Office Visit 08/31/2002 3:00p Main Office Sarmad Nice 461.0 Sinusitis Acute Gilbert Davidson Maxillary Office Visit 07/06/2002 9:10a [facility] Office Sarmad Davidson M.D. Office Visit 04/06/2002 10:20a Main Office Keegan Reilly M.D. Office Visit 03/23/2001 1:00p Main Office Shaw Hilario M.D. Office Visit 02/11/2001 11:30a Main Office Taiwo Valencia M.D. Office Visit 01/26/2001 3:20p Main Office Shaw Hilario M.D. Office Visit 01/19/2001 4:10p Main Office Shaw Hilario M.D. Office Visit 07/21/2000 11:40a Main Office Demian Melo M.D. Plan of Treatment Future Appointment(s):08/07/2019 3:00 pm - Arnel De Santiago M.D. at Main Irybui5604/05/2019 - Arnel De Santiago M.D.I10 Essential (primary) hypertensionComments:continue current medication, call if bp elevation is persistent above 140/90 , continue amlodipine and rzumujjlgcV74.2 Tinea manuumComments:Continue topical lvddooimtfuY57.21 Alcohol dependence, in remissionComments:says etoh not a problem nowAllComments:Medication Management Patient Understands medications he's taking? Yes No Are there Barriersto Adherence? Yes No Has the patient been asked about herbal supplements and therapies, and OTC meds? Yes NoFollow up:return to office 4 months
[2019-04-11 11:12] VITALS: BP 137/84
--- NOTE | 2019-04-11 13:19 | UC ---
Ear Complaint HPI - HPI Summary HPI Summary: PATIENT HAS HAD PROGRESSIVELY WORSENING DISCOMFORT AND LOSS OF HEARING IN HIS LEFT EAR OVER THE PAST COUPLE OF WEEKS. HAS A HISTORY OF CERUMEN IMPACTION. ATTEMPTED TO CLEAN HIS EAR WITH A Q-TIP BUT WAS UNSUCCESSFUL. FOLLOWS WITH DR. RAMOS WITH ENT. - History of Current Complaint Chief Complaint: UCEar Stated Complaint: EAR COMPLAINT Time Seen by Provider: 04/11/19 12:35 Hx Obtained From: Patient Onset/Duration: Gradual Onset, Lasting Days, Still Present Severity Initially: Moderate Severity Currently: Moderate Pain Intensity: 3 Pain Scale Used: 0-10 Numeric Aggravating Factors: Nothing Alleviating Factors: Nothing Associated Signs/Symptoms: Positive: Hearing Loss. Negative: Discharge, URI Symptoms - Allergies/Home Medications Allergies/Adverse Reactions: Allergies Allergy/AdvReac Type Severity Reaction Status Date / Time codeine Allergy Hives Verified 04/11/19 11:12 hydrocodone Allergy Hives Verified 04/11/19 11:12 PMH/Surg Hx/FS Hx/Imm Hx Cardiovascular History: Hypertension - Surgical History Surgical History: Yes Surgery Procedure, Year, and Place: TEMPORAL MASTOIDECTOMY - Family History Known Family History: Negative: Diabetes - Social History Alcohol Use: Daily Alcohol Amount: 2 beers and 1 glass of wine Substance Use Type: None Smoking Status (MU): Heavy Every Day Tobacco Smoker Type: Cigarettes Amount Used/How Often: 10-15 PER DAY Household Exposure Type: Cigarettes Review of Systems All Other Systems Reviewed And Are Negative: Yes Constitutional: Positive: Negative Skin: Positive: Negative ENT: Positive: Ear Ache Respiratory: Positive: Negative Cardiovascular: Positive: Negative Gastrointestinal: Positive: Negative Physical Exam Triage Information Reviewed: Yes Appearance: Well-Appearing, No Pain Distress, Well-Nourished Vital Signs: Initial Vital Signs Temp 98.8 F 04/11/19 11:09 Pulse 70 04/11/19 11:09 Resp 18 04/11/19 11:09 BP 137/84 04/11/19 11:09 Pulse Ox 100 04/11/19 11:09 Vital Signs Reviewed: Yes Eyes: Positive: Conjunctiva Clear ENT: Positive: Hearing grossly normal, Other - RIGHT EAC PARTIALLY OCCLUDED BY CERUMEN. POSTSURGICAL TM. LEFT EAC PARTIALLY OCCLUDED BY CERUMEN. POSTERIOR TM DULL, ERYHTHEMATOUS Neck: Positive: Supple Respiratory: Positive: No respiratory distress, No accessory muscle use Cardiovascular: Positive: Pulses Normal Abdomen Description: Positive: Soft Musculoskeletal: Positive: No Edema Neurological: Positive: Alert Psychological: Positive: Age Appropriate Behavior Skin: Negative: Rashes Ear Complaint Course/Dx - Course Course Of Treatment: CERUMEN CURETTED FROM BILATERAL EACS BY Gilbert SMALL AMOUNT OF RETAINED CERUMEN. PATIENT PREFERS TO FOLLOW UP WITH ENT FOR THE REMAINDER. LEFT TM WITH MILD ERYTHEMA AND DULLNESS. WILL COVER FOR OTITIS WITH TOPICAL CIPRODEX. PATIENT STATES HE HAS BEEN ON A LOT OF AUGMENTIN RECENTLY AND DECLINES ORAL ANTIBIOTICS AT PRESENT. ADVISED HIM TO FOLLOW-UP WITH HIS ENT IN THE NEXT 7-10 DAYS. - Differential Dx/Diagnosis Provider Diagnosis: Left acute otitis media, Impacted cerumen of both ears Discharge - Sign-Out/Discharge Documenting (check all that apply): Patient Departure All imaging exams completed and their final reports reviewed: No Studies - Discharge Plan Condition: Stable Disposition: HOME Prescriptions: Ciproflox/Dexameth OTIC.SUSP* [Ciprodex Otic*] 4 drop LEFT EAR BID #1 bottle Patient Education Materials: Cerumen Impaction (ED), Ear Infection (ED) Referrals: Kyree Ramos MD [Medical Doctor] - 1 Week James SY,YOSSI Armstrong [Primary Care Provider] - If Needed - Billing Disposition and Condition Condition: STABLE Disposition: Home
== END 2019-04-11 13:01 | disposition home or self-care (01) ==
LOC: UCEAST 10:45
DX: H66.92 Otitis media, unspecified, left ear (principal); H61.23 Impacted cerumen, bilateral; I10 Essential (primary) hypertension; F17.210 Nicotine dependence, cigarettes, uncomplicated; Z88.5 Allergy status to narcotic agent
CPT/HCPCS: 69210; 99212; G0463